=== PATIENT | male | born 1955 | race Caucasian/White ===

== ENCOUNTER 2016-08-23 20:14 | Inpatient (IN) ==
--- NOTE | 2016-08-23 20:18 | Emergency Department Note ---
Disposition Clinical Impression: Chest pain, Diabetes mellitus, Hyperlipidemia, History of pulmonary embolism, Obesity, Abnormal EKG, Elevated troponin, Hyperkalemia Disposition: Admitted As Inpatient Referrals: NO,PCP [Non-Partnered Physician] - Forms: ED Satisfaction Letter General Adult HPI - General Chief complaint: ED Chest Pain Stated complaint: chest pain Time Seen by Provider: 08/23/16 20:16 - History of Present Illness HPI Narrative: 61-year-old male reports emergency department complaining of midsternal chest pain which is somewhat sharp. He was mowing the lawn when the pain started. He had slight chest pain yesterday but it worsened today. He has no history of primary lung disease COPD asthma or cardiac disease but does have a history of DVT and PE. He is currently not anticoagulated. The patient has never had a cardiac stent. The pain does not radiate to the jaws or arms. There is no history of syncope leg swelling or pain or coughing up blood. No abdominal pain vomiting or diarrhea. There is no history of any trouble moving the arms or legs and dependently no acute back pain. The patient has no history of thoracic or abdominal aneurysm. There is been no coldness blueness numbness or weakness of the arms or legs. No history of fever cough runny nose or pain or sore throat. No trauma the chest. No rash. The patient was brought in by EMS. He had aspirin given by EMS providers. - Related Data Home Medications Medication Instructions Recorded Confirmed Allopurinol [Zyloprim] 300 mg PO DAILY 02/07/16 02/07/16 Naproxen [Naprosyn] 500 mg PO BID PRN 02/07/16 02/07/16 Previous Rx's Medication Instructions Recorded HYDROcodone/Acet 5/325 mg [[place] 1 tab PO Q4H PRN #12 tab 03/15/16 5-325 mg] Allergies Allergy/AdvReac Type Severity Reaction Status Date / Time No Known Allergies Allergy Verified 08/23/16 20:23 All systems ED: reviewed and negative except as stated. Past Medical History - Past Medical History Medical history: Reports: arthritis, DVT, diabetes, hyperlipidemia, pulmonary embolus, other Psychiatric history: Reports: no psych history - Social History Smoking Status: Former smoker Smokeless Tobacco Status: No Alcohol use: Reports: occasionally Drug use: Reports: none Physical Exam - General Limitations: no limitations General appearance: alert, in no apparent distress - Head Head exam: atraumatic, normocephalic, normal inspection - Eye Eye exam: Present: normal appearance, PERRL, EOMI. Absent: scleral icterus, conjunctival injection, miosis, mydriasis - ENT ENT exam: normal exam, normal oropharynx, mucous membranes moist, TM's normal bilaterally, normal external ear exam - Neck Neck exam: Present: normal inspection, full ROM, trachea midline. Absent: tenderness - Chest Chest inspection: Present: normal inspection, symmetric chest wall rise, tenderness. Absent: rash - Respiratory Respiratory exam: Present: normal lung sounds bilaterally. Absent: respiratory distress, wheezes, accessory muscle use, prolonged expiratory phase - Cardiovascular Cardiovascular exam: Present: regular rate, normal rhythm, normal heart sounds - Abdominal Exam Abdominal exam: Present: soft, Non-Tender, normal bowel sounds. Absent: tenderness, distention, guarding, rebound, rigidity, trauma, pulsatile mass - Extremities Exam Extremities exam: Present: full ROM, normal capillary refill, other (Chronic venous stasis changes lower extremities). Absent: tenderness, pedal edema, joint swelling, calf tenderness - Expanded Lower Extremity Exam Lower leg exam: Absent: Homans' sign Neurovascular/Tendon exam: Present: normal capillary refill. Absent: motor deficit, sensory deficit, tendon deficit, extremity cold to touch, pallor - Back Exam Back exam: Present: normal inspection, full ROM. Absent: tenderness, CVA tenderness (R), CVA tenderness (L), vertebral tenderness - Neurological Exam Neurological exam: Present: alert, oriented X3, CN II-XII intact. Absent: motor sensory deficit - Psychiatric Psychiatric exam: Present: normal affect, normal mood - Skin Skin exam: Present: warm, dry, intact, normal color. Absent: rash, cyanosis, diaphoresis, erythema, pallor, mottled Course Vital Signs Temperature 97.6 F 08/23/16 20:15 Pulse Rate 70 08/23/16 20:15 Respiratory Rate 18 08/23/16 20:15 Blood Pressure 162/97 08/23/16 20:15 O2 Sat by Pulse Oximetry 97 08/23/16 20:15 Temperature 97.6 F 08/23/16 20:15 Pulse Rate 70 08/23/16 20:15 Respiratory Rate 18 08/23/16 20:15 Blood Pressure 162/97 08/23/16 20:15 O2 Sat by Pulse Oximetry 97 08/23/16 20:15 Oxygen Delivery Oxygen Delivery Room Air Medical Decision Making - MDM Narrative Medical decision making narrative: The patient is a male over 50, morbidly obese, has a history of diabetes and hypercholesterolemia, his EKG is abnormal, he is expressing chest pain and has an elevated troponin. The patient was given aspirin and route. EMS had provided this for him. He was given pain relief measures in the ED. The patient has a history of PE and DVT but evidences a negative d-dimer. I do not necessarily suspect PE or DVT or dissection. His chest x-ray is negative. The patient's risk factors are significant for acute coronary syndrome and his testing is abnormal and I think it would be appropriate to admit the patient to the hospital for further evaluation.. The patient is currently stable. I discussed the case with the hospitalist who has accepted the patient to their care. - Lab Data Lab results reviewed: Yes I reviewed the patient's lab results. Result diagrams: 08/23/16 21:16 08/23/16 21:16 Lab Results 08/23/16 08/23/16 08/23/16 Range/Units 21:16 21:16 21:16 WBC (4.3-11.1) K/mcL RBC (4.19-5.50) M/mcL Hgb (12.9-16.9) g/dL Hct (37.5-50.1) % MCV (83.0-100.0) fL MCH (28.0-33.3) pg MCHC (31.6-35.5) g/dL RDW (11.5-14.5) % Plt Count (140-400) K/mcL MPV (9.4-12.4) fL Immature Gran % (0-4) % Seg Neutrophils % % Lymphocytes % % Monocytes % % Eosinophils % % Basophils % % Neutrophils # (1.6-8.9) K/mcL Lymphocytes # (0.6-4.6) K/mcL Monocytes # (0.0-1.3) K/mcL Eosinophils # (0.0-0.6) K/mcL Basophils # (0.0-0.2) K/mcL PT 11.6 (9.4-12.1) Seconds INR 1.1 APTT 31.0 (26.0-36.0) Seconds D-Dimer 457 (0-500) ng/mLFEU Sodium (136-145) mEq/L Potassium (3.5-4.5) mEq/L Chloride (98-109) mEq/L Carbon Dioxide (19-29) mEq/L BUN (8-26) mg/dL Creatinine (0.72-1.25) mg/dL Est GFR ( Amer) (> 60) Est GFR (Non-Af Amer) (> 60) BUN/Creatinine Ratio (6-26) Glucose (70-99) mg/dL Calculated Osmolality (280-300) Calcium (8.6-10.8) mg/dL Total Bilirubin 0.6 (0.2-1.2) mg/dL Direct Bilirubin 0.2 (0.0-0.5) mg/dL Indirect Bilirubin 0.4 (0.0-1.2) mg/dL AST 26 (5-34) Units/L ALT 27 (0-55) Units/L Alkaline Phosphatase 63 (38-126) Units/L Troponin I (0-0.03) ng/mL C-Reactive Protein 16 H (Less than 5) mg/L B-Natriuretic Peptide < 10 (0-100) pg/mL Serum Total Protein 7.8 (6.0-8.3) g/dL Albumin 3.9 (3.5-5.0) g/dL Globulin 3.9 H (2.4-3.5) g/dL Albumin/Globulin Ratio 1.0 L (1.1-2.2) Lipase 18 (8-78) Units/L 08/23/16 08/23/16 08/23/16 Range/Units 21:16 21:16 21:16 WBC 13.0 H (4.3-11.1) K/mcL RBC 5.44 (4.19-5.50) M/mcL Hgb 15.3 (12.9-16.9) g/dL Hct 46.4 (37.5-50.1) % MCV 85.3 (83.0-100.0) fL MCH 28.1 (28.0-33.3) pg MCHC 33.0 (31.6-35.5) g/dL RDW 15.4 H (11.5-14.5) % Plt Count 245 (140-400) K/mcL MPV 9.4 (9.4-12.4) fL Immature Gran % 0.8 (0-4) % Seg Neutrophils % 82.9 % Lymphocytes % 11.4 % Monocytes % 4.4 % Eosinophils % 0.2 % Basophils % 0.3 % Neutrophils # 10.7 H (1.6-8.9) K/mcL Lymphocytes # 1.5 (0.6-4.6) K/mcL Monocytes # 0.6 (0.0-1.3) K/mcL Eosinophils # 0.0 (0.0-0.6) K/mcL Basophils # 0.0 (0.0-0.2) K/mcL PT (9.4-12.1) Seconds INR APTT (26.0-36.0) Seconds D-Dimer (0-500) ng/mLFEU Sodium 139 (136-145) mEq/L Potassium 5.0 H (3.5-4.5) mEq/L Chloride 105 (98-109) mEq/L Carbon Dioxide 23 (19-29) mEq/L BUN 20 (8-26) mg/dL Creatinine 1.24 (0.72-1.25) mg/dL Est GFR ( Amer) > 60 (> 60) Est GFR (Non-Af Amer) 60 (> 60) BUN/Creatinine Ratio 16 (6-26) Glucose 145 H (70-99) mg/dL Calculated Osmolality 293 (280-300) Calcium 9.6 (8.6-10.8) mg/dL Total Bilirubin (0.2-1.2) mg/dL Direct Bilirubin (0.0-0.5) mg/dL Indirect Bilirubin (0.0-1.2) mg/dL AST (5-34) Units/L ALT (0-55) Units/L Alkaline Phosphatase (38-126) Units/L Troponin I 0.08 H* (0-0.03) ng/mL C-Reactive Protein (Less than 5) mg/L B-Natriuretic Peptide (0-100) pg/mL Serum Total Protein (6.0-8.3) g/dL Albumin (3.5-5.0) g/dL Globulin (2.4-3.5) g/dL Albumin/Globulin Ratio (1.1-2.2) Lipase (8-78) Units/L - Radiology Data Radiology results reviewed: Yes I reviewed the patient's radiology results.
[2016-08-23] MEDS ORDERED: Ondansetron 4 MG/2 ML VIAL IVP ONE (20:30)
[2016-08-23] MEDS ORDERED: *HR* HYDROmorphone (PF) 1 MG/ML SYRINGE IVP ONE (20:30)
[2016-08-23 21:31] LABS: INR 1.1; Prothrombin Time 11.6 Seconds (9.4-12.1)
[2016-08-23 21:38] LABS: BUN/Creatinine Ratio 16 (6-26); Blood Urea Nitrogen 20 mg/dL (8-26); Calcium 9.6 mg/dL (8.6-10.8); Carbon Dioxide 23 mEq/L (19-29); Chloride 105 mEq/L (98-109); Glucose 145 mg/dL (70-99); Osmolality,Calculated 293 (280-300); Sodium 139 mEq/L (136-145); eGFR For African Americans > 60 (> 60); eGFR For Non-African Americans 60 (> 60)
[2016-08-23 21:40] LABS: Albumin 3.9 g/dL (3.5-5.0); Bilirubin,Direct 0.2 mg/dL (0.0-0.5); Bilirubin,Indirect 0.4 mg/dL (0.0-1.2); Bilirubin,Total 0.6 mg/dL (0.2-1.2); Globulin 3.9 g/dL (2.4-3.5); Total Protein 7.8 g/dL (6.0-8.3)
[2016-08-23 21:41] LABS: Basophils % 0.3 %; Eosinophils % 0.2 %; Hematocrit 46.4 % (37.5-50.1); Hemoglobin 15.3 g/dL (12.9-16.9); Immature Granulocytes % 0.8 % (0-4); Lymphocytes # 1.5 K/mcL (0.6-4.6); Lymphocytes % 11.4 %; Mean Corpuscular Hemoglobin 28.1 pg (28.0-33.3); Mean Corpuscular Volume 85.3 fL (83.0-100.0); Mean Platelet Volume 9.4 fL (9.4-12.4); Monocytes # 0.6 K/mcL (0.0-1.3); Monocytes % 4.4 %; Neutrophils # 10.7 K/mcL (1.6-8.9); Platelet Count 245 K/mcL (140-400); Red Blood Count 5.44 M/mcL (4.19-5.50); Red Cell Distribution Width 15.4 % (11.5-14.5); Segmented Neutrophils % 82.9 %
[2016-08-23] MEDS ORDERED: Naloxone 0.4 MG/ML INJ IVP PRN (22:12)
--- NOTE | 2016-08-23 23:21 | Internal Med History&Physical ---
Date of Encounter: 08/23/16 Time of Encounter: 23:20 Assessment and Plan (1) Chest pain Current visit: Yes Status: Acute pt with no prior documented CAD but significant risk factors comes in with chest pain concerning for ACS for which a stress test will be reasonable, his EKG showed non specific ROBEL TW changes, troponin levels was 0.08 earlier but his chest pain had resolved, we will cycle troponin if it uptrends we will get cardiology involved due to concern for NSTEMI, otherwise we will do a stress test in AM, we will also check lipid profile and A1c, do telemonitoring, aspirin and lipitor Qualifiers: Chest pain type: precordial pain Qualified Code(s): R07.2 - Precordial pain (2) Hyperkalemia Current visit: Yes Status: Acute may be related to cellular shifts, we will follow BMP, no need for urgent intervention (3) JAYSHREE (obstructive sleep apnea) Current visit: Yes Status: Chronic had a sleep study and was supposed to get a CPAP device but has not gotten around to it yet, he is not open to being placed on one inpatient, we will defer to outpatient (4) Diabetes mellitus Current visit: Yes Status: Chronic Hx of type 2 DM not on insulin regimen, we will do basal bolus insulin and follow FS, Qualifiers: Diabetes mellitus type: type 2 Diabetes mellitus complication status: with neurologic complications Diabetes mellitus complication detail: with polyneuropathy Diabetes mellitus half-way 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 Sawant is a 61 year old male with a history of morbid obesity/HTN/DM/ Dyslipidemia was brought to the ER for chest pain. He was in his usual state of health until at around 5-6pm when he began having chest pain whilst mowing the lawn at home. It was retrosternally located, felt like "someone sitting on my chest", was increasingly getting worse to a peak of 9-10/10. It radiated to both arms. It was constant and associated with diaphoresis, lightheadedness and apprehension. No nausea or vomiting, or dyspnea was noted. This is his first such episode. He had a stress test >5 years ago that was unremarkable. Past Med Surg Social Fam HX - Past Medical History Source: patient Medical history: arthritis, DVT (BLE followed by a PE at the same time about 5 years ago and was on coumadin for 4 months and was discontinued), diabetes, hyperlipidemia, pulmonary embolus, other (kidney stones, right knee gout, morbid obesity, JAYSHREE but not obtained CPAP device yet, sciatica) Psychiatric history: no psych history - Past Surgical History Surgical History: other (for kidney stone removal) - Social History Smoking Status: Never smoker Packs per day: he has never smoked cigarettes but smokes 1 cigar/month, Smokeless Tobacco Status: No Alcohol use: occasionally Drug use: none Occupational status: disabled Current living situation: Home - Independent Activity Level: Independent ambulation - Family History Mother Living Status: Hx Family Cardiac Disorders: No Hx Family Respiratory Disorders: No Hx Family Cancer: Yes (kidney) Hx Family GI Disorders: No Hx Family Endocrine Disorder: No Hx Family Neuromuscular Disorders: No Hx Family Neurologic Disorders: No Hx Family HEENT Disorders: No Hx Family Autoimmune Disorders: No - Additional Family History Additional family history: father of possible PAD during surgery for that, mother had kidney cancer s/p resection, she eventually of Alzheimer's dementia Internal Medicine - H&P: Meds Allopurinol [Zyloprim] 300 mg PO DAILY 02/07/16 [History] Naproxen [Naprosyn] 500 mg PO BID PRN 02/07/16 [History] HYDROcodone/Acet 5/325 mg [[place] 5-325 mg] 1 tab PO Q4H PRN #12 tab 03/15/16 [Rx ] Allergies No Known Allergies Allergy (Verified 08/23/16 20:23) All Systems PM: A 10-system review of systems was performed and is negative for pertinent findings except as documented above in the HPI. - Constitutional Vitals: Temp Pulse Resp BP Pulse Ox 97.6 F 70 18 162/97 97 08/23/16 20:15 08/23/16 20:15 08/23/16 20:15 08/23/16 20:15 08/23/16 20:15 General General appearance: Adult male, lying in bed with no sign of distress, alert, in no apparent distress, obese looking - Head Head exam: atraumatic, normocephalic, normal inspection - Eye Eye exam: , PERRL, EOMI. Absent: scleral icterus, conjunctival injection, miosis, mydriasis - ENT ENT exam: normal exam, normal oropharynx, mucous membranes moist, TM's normal bilaterally, normal external ear exam - Neck Neck exam: thick looking, full ROM, trachea midline. Absent: tenderness - Respiratory Respiratory exam: Present: normal lung sounds bilaterally. Absent: respiratory distress, wheezes, accessory muscle use, prolonged expiratory phase - Cardiovascular Cardiovascular exam: Present: regular rate, normal rhythm, normal heart sounds - Abdominal Exam Abdominal exam: obese abdomen, soft, Non-Tender, normal bowel sounds. Absent: tenderness, distention, guarding, rebound, rigidity, trauma, pulsatile mass - Extremities Exam Extremities exam: full ROM, normal capillary refill, other (Chronic venous stasis changes lower extremities). Absent: tenderness, pedal edema, joint swelling, calf tenderness - Neurological Exam Neurological exam: alert, oriented X3, CN II-XII intact. Absent: motor or sensory deficit - Psychiatric Psychiatric exam: Present: normal affect, normal mood - Skin Skin exam: warm, dry, bilateral lower extremity stasis dermatitis lesion Internal Med - H&P Results - Labs CBC & Chem 7: 08/23/16 21:16 08/24/16 03:59 - EKG Data -: EKG Interpreted by Myself - Diagnostic Studies Chest x-ray Status: image reviewed by me
[2016-08-24] MEDS ORDERED: *HR* Dextrose 50 % in Water (Syg) 50 ML SYRINGE IVP PRN (00:48)
[2016-08-24] MEDS ORDERED: D5% in Water 1,000 ML IVC PRN (00:48)
[2016-08-24] MEDS ORDERED: Dextrose Gel 15 GM PO PRN ×2 (00:48)
[2016-08-24] MEDS: *HR* HYDROcodone/Acet 5/325 mg TABLET PO PRN ×2 (03:00→13:38)
[2016-08-24] MEDS ORDERED: *HR* Heparin 5,000 UNIT/ML VIAL IVP ONE (05:17)
[2016-08-24] MEDS ORDERED: *HR* Heparin 5,000 UNIT/ML VIAL IVP PRN ×2 (05:17)
--- NOTE | 2016-08-24 05:22 | Event Note ---
Date of Encounter: 08/24/16 Time of Encounter: 05:21 pt initially admitted for chest pain for r/o has uptrending troponins, there is concern for NSTEMI so we will start the ACS protocol and get cardiology involved , will also change his status to inpt admission.
[2016-08-24 05:29] LABS: BUN/Creatinine Ratio 17 (6-26); Blood Urea Nitrogen 19 mg/dL (8-26); Calcium 9.2 mg/dL (8.6-10.8); Carbon Dioxide 19 mEq/L (19-29); Chloride 106 mEq/L (98-109); Chol/HDL Ratio 6.3 (0-4.9); Cholesterol 213 mg/dL (< 200); Glucose 152 mg/dL (70-99); HDL Cholesterol 34 mg/dL (40-59); LDL Cholesterol,Calculated 154 mg/dL (0-99); Magnesium 2.1 mg/dL (1.6-2.6); Osmolality,Calculated 293 (280-300); Phosphorous 4.3 mg/dL (2.3-4.7); Potassium 4.3 mEq/L (3.5-4.5); Sodium 139 mEq/L (136-145); Triglycerides 127 mg/dL (< 150); eGFR For African Americans > 60 (> 60); eGFR For Non-African Americans > 60 (> 60)
[2016-08-24] MEDS ORDERED: Heparin 25,000 UNIT/500 ML D5W 25,000 UNIT/500 ML MLS IVC SCH (05:30)
[2016-08-24 05:31] LABS: Hemoglobin A1C 5.8 %
[2016-08-24] MEDS: Insulin LISPRO 300 UNITS/3 ML VIAL SQ SCH ×3 (06:21→19:13)
[2016-08-24] MEDS: Aspirin 81 MG TAB.CHEW PO SCH (08:27)
--- NOTE | 2016-08-24 08:47 | Cardiology Consult Note ---
Date of Encounter: 08/24/16 Time of Encounter: 08:38 Assessment and Plan (1) STEMI (ST elevation myocardial infarction) Current Visit: Yes Status: Acute significant risk factors for ACS HTN, HLD, DM, morbid obesity ST segment elevation in EKG done by EMS ER EKG with ST segment changes with elevation in troponins .08>1.14 continue tele, asa, lipitor plan for cath later this morning continue to follow troponin Qualifiers: Involved coronary artery: unspecified coronary artery Qualified Code(s): I21.3 - ST elevation (STEMI) myocardial infarction of unspecified site (2) Chest pain Current Visit: Yes Status: Acute significant risk factors for ACS HTN, HLD, DM, morbid obesity with elevation in troponins .08>1.14 EKG with non specific ROBEL TW changes continue tele, asa, lipitor, Qualifiers: Chest pain type: precordial pain Qualified Code(s): R07.2 - Precordial pain (3) Troponin level elevated Current Visit: Yes Status: Acute (4) Abnormal EKG Current Visit: Yes Status: Acute (5) History of pulmonary embolism Current Visit: Yes Status: Acute (6) Obesity Current Visit: Yes Status: Acute Qualifiers: Obesity type: due to excess calories Obesity severity: morbid Qualified Code(s): E66.01 - Morbid (severe) obesity due to excess calories (7) Diabetes mellitus Current Visit: Yes Status: Chronic Hx of type 2 DM not on insulin regimen, we will do basal bolus insulin and follow FS, Qualifiers: Diabetes mellitus type: type 2 Diabetes mellitus complication status: with neurologic complications Diabetes mellitus complication detail: with polyneuropathy Diabetes mellitus [facility] insulin use: without [facility] use Qualified Code(s): E11.42 - Type 2 diabetes mellitus with diabetic polyneuropathy (8) Hyperlipidemia Current Visit: Yes Status: Chronic will check his lipid profile, started on statin, was not on one at home prior to admission Qualifiers: Hyperlipidemia type: mixed hyperlipidemia Qualified Code(s): E78.2 - Mixed hyperlipidemia Discussion w patient/family: The assessment and plan as outlined above was discussed with the patient and/or family members who expressed understanding and agreement. All questions were answered. Thank you for involving us in the care of your patient. Please call with any questions. History of Present Illness Consult date: 08/24/16 Requesting physician: Monalisa Nuñez Consult reason: troponin elevation Chief complaint: chest pain History of present illness: Mr. Sawant is a 61 year old male OMHx morbid obesity, HTN, HLD, DM presented to the ER with chest pain. Pt states chest pain started suddenly while outside cutting his grass. He describes pain as a 9/10 heavy pressure-like pain that started suddenlyin substernal chest and radiated down both arms. He states he also became very lightheaded and dizzy with diaphoresis. pain was not improved with rest. Received asprin and dilaudid in ER, which minimally improved pain. He states he is still currently having some chest pain but is currently only about 3-4/10 after pain medication and starting heparin drip this morning. Pt states pain in both arms have improved but they are now feeling numb. Pt denies shortness of breath, but states he can only walk about 100feet without getting short of breath and needing to sit down due to severe deconditioning and chronic back pain. Pt states he has never had anything like this before and has never had any [place], stroke, has had PE previously. Past Med Surg Social Fam HX - Past Medical History Medical history: arthritis, DVT (BLE followed by a PE at the same time about 5 years ago and was on coumadin for 4 months and was discontinued), diabetes, hyperlipidemia, pulmonary embolus, other (kidney stones, right knee gout, morbid obesity, JAYSHREE but not obtained CPAP device yet, sciatica) Psychiatric history: no psych history - Past Surgical History Surgical History: other (for kidney stone removal) - Social History Smoking Status: Never smoker Packs per day: he has never smoked cigarettes but smokes 1 cigar/month, Smokeless Tobacco Status: No Alcohol use: occasionally Drug use: none - Family History Mother Living Status: Hx Family Cardiac Disorders: No Hx Family Respiratory Disorders: No Hx Family Cancer: Yes (kidney) Hx Family GI Disorders: No Hx Family Genitourinary Disorders: No Hx Family Endocrine Disorder: No Hx Family Musculoskeletal Disorders: No Hx Family Neuromuscular Disorders: No Hx Family Neurologic Disorders: No Hx Family HEENT Disorders: No Hx Family Autoimmune Disorders: No Hx Family Reproductive Disorders: No Hx Family Psychosocial Disorders: No Hx Family Medical Disorders: No Medications and Allergies Allopurinol [Zyloprim] 300 mg PO DAILY 02/07/16 [History] Lisinopril [Zestril] 5 mg PO DAILY 08/24/16 [History] Lovastatin 40 mg PO DAILY 08/24/16 [History] metFORMIN [Glucophage] 500 mg PO BIDWM 08/24/16 [History] Allergies No Known Allergies Allergy (Verified 08/23/16 20:23) All Systems Review: A 10-system review of systems was performed and is negative for pertinent findings except as documented above in the HPI. - Constitutional Constitutional: malaise, no chills, no fever(s) - EENT Eyes: no blurred vision, no loss of vision - Cardiovascular Cardiovascular: chest pain at rest, chest pain with exertion, diaphoresis, dyspnea on exertion, radiating jaw, neck or arm pain, lightheadedness, no claudication, no dyspnea at rest, no irregular heart rhythm, no leg edema, no syncope - Respiratory Respiratory: no cough, no dyspnea - Gastrointestinal Gastrointestinal: no abdominal pain, no nausea - Neurological Neurological: dizziness, numbness, no abnormal speech, no focal weakness, no loss of vision, no memory loss, no tingling Physical Examination Vital Signs, Last 4 Hours Temp Pulse Resp BP Pulse Ox 08/24/16 07:43 97.9 F 78 18 157/84 95 General: Conversant, No Apparent Distress HEENT: Atraumatic, Normocephaly, Mucus Membranes Moist Neck: No JVD Cardiac: Reg Rate and Rhythm, Normal S1 and S2, No Murmur Lungs: No Wheeze, Rales, Rhonchi, Other (diminished at bases) Neuro: Alert and responsive, No focal deficits noted Abdomen: Soft, Non-Tender Skin: Other (venous stasis b/l LE) Musculoskeletal: No Chest Wall Tenderness Extremities: Normal Pulses Results 08/23/16 21:16 08/24/16 03:59 - EKG Interpretation EKG results cardiology: personally reviewed, other (nonspecific ST segment changes) Consult Discharge Plan - Plan Referrals: Ab Garcia MD [Primary Care Provider] -
--- NOTE | 2016-08-24 10:32 | Pre-Sedation Evaluation ---
Pre-sedation evaluation - Pre-sedation checklist Date of procedure: 08/24/16 Procedure: [facility] Recent Vitals: Last Vital Signs Temp 97.9 F 08/24/16 07:43 Pulse 78 08/24/16 07:43 Resp 18 08/24/16 07:43 BP 157/84 08/24/16 07:43 Pulse Ox 95 08/24/16 08:20 H&P (including ROS) documented in medical record: Yes Previous reaction to sedatives/anesthetics: No Dietary Status: NPO after Midnight Airway Assessment: Patient can open mouth completely, TMJ function normal, Micrognathia (under-bite, receding chin) absent, Neck with adequate range of motion Dentition: No loose teeth or bridges Possible difficult airway: Yes If Yes;: Morbid obesity ASA Classification *see protocol: CLASS II-Mild systemic disease Plan of Care: Pt appropriate candidate for procedure/moderate/conscious sedation , Risks/benefits of procedure/sedation discussed w/ patient/family
[2016-08-24] MEDS ORDERED: 0.9 % Sodium Chloride 1,000 ML ONE ×2 (10:33→10:52)
[2016-08-24] MEDS ORDERED: Nitroglycerin 1,000 MCG/10 ML VIAL IV ONE (10:33)
[2016-08-24] MEDS ORDERED: Heparin 1,000 UNITS/500 mL NS 500 ML ONE (10:33)
[2016-08-24] MEDS ORDERED: Verapamil 5 MG/2 ML VIAL ONE (10:33)
[2016-08-24] MEDS ORDERED: *HR* Heparin 10,000 UNIT/10 ML VIAL ONE (10:33)
[2016-08-24] MEDS ORDERED: *HR* Midazolam HCl 5 MG/5 ML VIAL IVP ONE (10:47)
[2016-08-24] MEDS ORDERED: *HR* FentaNYL (PF) 250 MCG/5 ML VIAL ONE (10:47)
--- NOTE | 2016-08-24 10:59 | Internal Med Progress Note ---
Date of Encounter: 08/24/16 Time of Encounter: 09:00 - Assessment and plan (1) Chest pain Current Visit: Yes Status: Acute Assessment and plan: He was in his usual state of health until at around 5-6pm yesterday when he began having chest pain while mowing the lawn at home. It was retrosternally located, felt like "someone sitting on my chest", was increasingly getting worse to a peak of 9-10/10. It radiated to both arms. It was constant and associated with diaphoresis, lightheadedness and apprehension. EKG showed non-specific ROBEL and TVI. Second troponin became positive at 1.44 and he was started on ACS protocol heparin drip, statin and aspirin. Cardiology was consulted and plan for [facility] today. . Qualifiers: Chest pain type: precordial pain Qualified Code(s): R07.2 - Precordial pain (2) NSTEMI (non-ST elevated myocardial infarction) Current Visit: Yes Status: Acute Assessment and plan: plans as above (3) Diabetes mellitus Current Visit: Yes Status: Chronic Assessment and plan: diabetic diet. sliding scale insulin. Qualifiers: Diabetes mellitus type: type 2 Diabetes mellitus complication status: with neurologic complications Diabetes mellitus complication detail: with polyneuropathy Diabetes mellitus director long term care insulin use: without penitentiary use Qualified Code(s): E11.42 - Type 2 diabetes mellitus with diabetic polyneuropathy (4) JAYSHREE (obstructive sleep apnea) Current Visit: Yes Status: Chronic (5) Morbid obesity with BMI of 50.0-59.9, adult Current Visit: Yes Status: Chronic Assessment and plan: [id number] - Subjective Interval history: patient reports minimal chest pain. no shortness of breath. no headache - Constitutional Vitals: Temp Pulse Resp BP Pulse Ox 97.9 F 78 18 157/84 95 08/24/16 07:43 08/24/16 07:43 08/24/16 07:43 08/24/16 07:43 08/24/16 08:20 General appearance: Present: cooperative, A&O X 3, morbidly obese, pleasant, no acute distress, answers questions appropriately - Neck Neck exam general surgery: Present: supple, trachea midline. Absent: lymphadenopathy - Respiratory Respiratory exam: Present: CTAB - Cardiovascular Cardiovascular exam: Present: RRR - GI/Abdominal GI/Abdominal exam: Present: normal bowel sounds, soft. Absent: distended, tenderness - Extremities Exam Extremities exam: Absent: pedal edema - Back Exam Back exam: Absent: CVA tenderness (L), CVA tenderness (R) - Neurological Exam Neurological exam: Present: alert, oriented X3. Absent: facial droop, speech deficit - Skin Skin exam: Absent: rash Internal Medicine: Result - Labs CBC & Chem 7: 08/23/16 21:16 08/24/16 03:59 Labs: Cardiac Enzymes 08/24/16 Range/Units 09:45 Troponin I 6.19 H* (0-0.03) ng/mL - ABG Interpretation ABG results: PT/INR, D-dimer PT 11.6 Seconds (9.4-12.1) 08/23/16 21:16 D-Dimer 457 ng/mLFEU (0-500) 08/23/16 21:16 Consult Discharge Plan - Plan Referrals: Ab Garcia MD [Primary Care Provider] -
[2016-08-24] MEDS ORDERED: *HR* Ticagrelor 90 MG TABLET ONE (12:18)
[2016-08-24] MEDS ORDERED: Acetaminophen 325 MG TABLET PO PRN (12:28)
[2016-08-24] MEDS ORDERED: Nitroglycerin 0.4 MG TAB.SUBL SL PRN (12:28)
--- NOTE | 2016-08-24 12:52 | Invasive Diagnostic Lab Proc ---
Name: Jose Guadalupe Sawant Date of Study: 08/24/2016 Date: 1955 Ht: 68.1in Medical Record#: [id number] Age: 61 Wt: 374.79lb Gender: Male BSA: 2.67 Order #: [id number] BMI: 56.8 Physicians Procedure Physician: Padmaja Grace MD, [facility] Referring MD: Referring MD: Staff Name Position Time In Maynor Perez RN Monitor 11:04 AM Ivis Dial RT Scrub 11:04 AM Agustina Velázquez RN Educational Program Director 11:04 AM Indications Indication Non-Stemi Procedures Performed Procedure L HRT ARTERY/VENTRICLE ANGIO PRQ CARD ELIJAH STENT W/ANGIO 1 VSL Pre-Procedure Checklist Informed consent is complete signed and on chart. H\\T\\P is on chart. ID band is on and ID verified with patient. Patient NPO for procedure The procedure was described for the patient and questions were answered. Blood Pressure: 157/84 ECG is on chart. Rhythm: NSR Plan of Care Patient will tolerate the procedure without complications. Adequate level of comfort will be maintained. Hemodynamics will remain stable Patient will recover from procedure without complications. Respiratory function will be maintained. Cardiac rhythm will remain stable. Patient temperature will be maintained. Patient and/or family have verbalized understanding of the procedure. Patient Education Chief Complaint/Reason for Test: Cardiac Cath Developmental Category: Adult (18-64 years) Developmentally Appropriate for Age: Yes Learning Barriers: None Education Needs: Procedure Education Method: Verbal Information Taught: Cardiac Cath Educational Evaluation: Able to repeat information Intravenous Access Time IV Size Location DC'd Fluid/Drip Rate Units RN DC'd Rt Antecubital Yes 0.9NaCl 25 ml/hr Maynor Perez RN 11:13 AM Started with 20g 1 1/4" Lt Antecubital 0.9NaCl 25 ml/hr Maynor Perez RN Allergies No Known Allergies Vital Signs Time BP (mmHg) HR (bpm) O2 Sat. RR (bpm) LOC 157 / 84 78 95 % 16 5 = Fully awake and oriented or at pre-proc level 11:06 AM / % 5 = Fully awake and oriented or at pre-proc level 11:20 AM / % 5 = Fully awake and oriented or at pre-proc level 11:29 AM / % 4 = Oriented but drowsy 11:29 AM / % 4 = Oriented but drowsy 11:44 AM / % 4 = Oriented but drowsy 11:59 AM / % 4 = Oriented but drowsy 11:22 AM 176 / 121 79 98 % 15 11:25 AM 189 / 110 83 97 % 12 11:31 AM 170 / 105 83 96 % 15 11:35 AM 163 / 103 76 96 % 19 11:40 AM 164 / 109 81 95 % 11:45 AM 169 / 105 80 96 % 11:50 AM 174 / 106 80 96 % 11:55 AM 177 / 109 81 96 % 15 12:01 PM 182 / 108 81 95 % 12:06 PM 171 / 107 78 94 % 12:10 PM 167 / 108 80 95 % 14 12:16 PM 163 / 93 86 93 % 16 12:20 PM 162 / 104 85 93 % 17 Procedural Medications Time Medication Dose Units Method Given By 11:24 AM Versed 2 mg Intravenous Agustina Velázquez RN 11:24 AM Fentanyl 50 mcg Intravenous Agustina Velázquez RN 11:27 AM Oxygen 2 L/min nasal cannula Agustina Velázquez RN 11:28 AM Lidocaine 2% 1 ml Subcutaneous Padmaja Grace MD, FACC 11:31 AM Heparin 4000 units Nitroglycerin 200 mcg Verapamil 2.5 mg Intraarterial Padmaja Grace MD, FACC 11:58 AM Lidocaine 2% 11 ml Subcutaneous Padmaja Grace MD, FACC 12:13 PM Nitroglycerin 200 mcg Intracoronary Padmaja Grace MD, FACC 12:15 PM Nitroglycerin 200 mcg Intracoronary Padmaja Grace MD, FACC 12:05 PM Benadryl 25 mg Intravenous Agustina Velázquez RN 12:23 PM Brilinta 180 mg Orally Agustina Velázquez RN 12:32 PM Reopro Bolus: 21.2 ml Intravenous Agustina Velázquez RN ASA Classification: CLASS II- Mild systemic disease (i.e. well-controlled diabetes, hypertension, asthma, cigarette smoking) Jimena Score Preprocedure Postprocedure Activity 2- Moves 4 extremities sustained head lift Activity 2- Moves 4 extremities sustained head lift Circulation 2- SBP +/= 20 points of pre-anesthetic level Circulation 2- SBP +/= 20 points of pre-anesthetic level Consciousness 2- Awake and alert oriented x 3 Consciousness 2- Awake and alert oriented x 3 O2 Saturation 2- Able to maintain O2 satruation of 92% on room air O2 Saturation 2- Able to maintain O2 satruation of 92% on room air Respiratory 2- Able to deep breathe and cough well Respiratory 2- Able to deep breathe and cough well Total Score 10 Total Score 10 Contrast Agent: Isovue Diagnostic Contrast: 246 ml Total Contrast: 246 ml Fluoro Dose: 3191 mGy Activated Clotting Time Time Seconds to Clot 12:08 PM 331 12:25 PM 168 Procedure Log Time Note Enter By 10:42 AM CathStat 11:00 AM Pt arrived to labor delivery rn 2 at 11:00 tsites 11:00 AM Physician arrived 11:00 tsites 11:04 AM Maynor Perez RN Position: Monitor Time in: : tsites 11:04 AM Ivis Dial RT Position: Scrub Time in: : tsites 11:04 AM Agustina Velázquez RN Position: Educational Program Director Time in: 11:04 tsites 11:04 AM Patient charges- Angio tray pack, Navilyst 3mm J, Pulse Oximetry and ACIST tubing and transducer tsites 11:04 AM IV Supplies used: J loop Angio Cath. tsites 11:04 AM Hair removed from procedure site in procedure lab using clippers. Right wrist and right groin prepped with Chloraprep by Maynor Perez RN, safety strap applied then patient was draped. Skin intact. tsites 11:05 AM ASA Class CLASS II- Mild systemic disease (i.e. well-controlled diabetes, hypertension, asthma, cigarette smoking) csmith 11:05 AM Kyle and jovon completed csmith 11:05 AM Sign in performed according to hospital policy. csmith 11:05 AM Procedure start 11:05 csmith 11:05 AM IV to R AC not flushing, dc'd, pressure held until hemostasis achieved csmith 11:06 AM Time: 11:06 Patient comfortable and pain free: Yes csmith 11:06 AM Time: 11:06LOC: 5 = Fully awake and oriented or at pre-proc level csmith 11:20 AM Vitals capture started with the following parameters, Patient=Adult, Interval=5 min, Initial Xmldbdqf=785 mmHg, Deflation Rate=5 mmHg, Cuff placed on Left Arm 11:20 AM Case Start 11:20 AM Time: 11:20 Patient comfortable and pain free: Yes tsites 11:20 AM Time: 11:20LOC: 5 = Fully awake and oriented or at pre-proc level tsites 11:22 AM HR=79 bpm, RASV=009/121 mmhg, SpO2=98.0 %, Resp=15 B/min, Comment=sr 11:24 AM Time: 11:24 Versed 2 mg Intravenous Given by Agustina Velázquez RN [facility] 11:24 AM Time: 11: Fentanyl 50 mcg Intravenous Given by Agustina Velázquez RN [facility] 11: AM HR=83 bpm, MNWB=361/110 mmhg, SpO2=97.0 %, Resp=12 B/min, Comment=sr 11: AM Time out performed according to hospital policy [facility] : AM Time: : Oxygen on at 2 L/min per nasal cannula by Agustina Velázquez RN [facility] : AM Pressure channel 1 zeroed. : AM Time: : 1 ml Lidocaine 2% to right radial Subcutaneous [facility] Time: : Patient comfortable and pain free: Yes [email or web address] 11: AM Time: :LOC: 4 = Oriented but drowsy kkallner 11: AM Clinical Presentation: Non-STEMI kkallner 11:30 AM Access obtained by percutaneous puncture. 6Fr 10cm Terumo Glidesheath sheath placed in right Radial artery. [id number] kkner 11:31 AM HR=83 bpm, ZUEB=226/105 mmhg, SpO2=96.0 %, Resp=15 B/min, Comment=sr : AM Time: : Patient given 4,000 units Heparin, 200 mcg Nitroglycerin, and 2.5 mg Verapamil Intraarterial by Padmaja Grace MD, FACC kkner 11:32 AM 5Fr FR5 catheter inserted over the wire [id number] kkallner 11:32 AM wire removed kkner 11:33 AM RCA angiography performed in multiple views. [email or web address] 11:34 AM Recorded Pressure: Ao, HR=82, Condition=Condition 1 (Aorta) Ao 68/55/62 11:34 AM Pressure channel 1 zeroed. 11:35 AM wire reinserted kkallner 11:35 AM Catheter removed kkallner 11:35 AM HR=76 bpm, DWOO=626/103 mmhg, SpO2=96.0 %, Resp=19 B/min 11:35 AM 5Fr FL3.5 catheter inserted over the wire [id number] kk 11:36 AM wire removed kk 11:37 AM wire reinserted kk 11:38 AM Catheter removed kk 11:39 AM 6Fr EBU 3.5 Medtronic guide catheter was used to cannulate the PCI vessel successfully. reused? No kkner 11:39 AM wire removed kk 11:40 AM HR=81 bpm, BSTI=392/109 mmhg, SpO2=95.0 %, Comment=sr 11:42 AM Catheter removed kk 11:43 AM 6Fr JL4 [employer] guide catheter was used to cannulate the PCI vessel successfully. reused? No kk 11:44 AM Time: 11:29 Patient comfortable and pain free: Yes 11:44 AM Time: 11:29LOC: 4 = Oriented but drowsy kk 11:44 AM wire removed kk 11:45 AM HR=80 bpm, NWUM=728/105 mmhg, SpO2=96.0 % 11:47 AM wire reinserted kkner 11:48 AM Guide catheter removed intact. kkner 11:49 AM 6Fr EBU 3.0 Medtronic guide catheter was used to cannulate the PCI vessel successfully. reused? No kk 11:49 AM wire removed kk 11:50 AM HR=80 bpm, BLAA=538/106 mmhg, SpO2=96.0 % 11:53 AM Guide catheter removed intact. kk 11:54 AM 6Fr CLS 3.0 Runway guide catheter was used to cannulate the PCI vessel successfully. reused? No kk 11:54 AM wire removed kk 11:55 AM HR=81 bpm, QNRD=864/109 mmhg, SpO2=96.0 %, Resp=15 B/min 11:57 AM Guide catheter removed intact. kk 11:59 AM Time: 11:44 Patient comfortable and pain free: Yes kk 11:59 AM Time: 11:44LOC: 4 = Oriented but drowsy [facility] 12:00 PM Time: 11:58 11 ml Lidocaine 2% to right groin Subcutaneous Given by Padmaja Grace MD, [facility] 12:00 PM Access obtained by percutaneous puncture. 6Fr 10cm Terumo [place] sheath placed in right Femoral artery. [id number] 12:00 PM 6Fr EBU 3.5 Medtronic guide catheter was used to cannulate the PCI vessel successfully. reused? Yes kkner 12:01 PM HR=81 bpm, TINX=275/108 mmhg, SpO2=95.0 % 12:01 PM wire removed kkner 12:02 PM Recorded Pressure: Ao, HR=78, Condition=Condition 1 (Aorta) Ao 143/92/115 12:02 PM LCA angiography performed in multiple views. kk 12:03 PM Inflation device was opened. kkner 12:03 PM .014 Prowater 180cm guide wire across target lesion- successful. reused? No kkner 12:04 PM 2.5 mm x 15 mm Emerge Monorail balloon across target lesion- successful. reused? No kk 12:05 PM Time: 12:05 Benadryl 25 mg Intravenous Given by Agustina Velázquez RN 12:06 PM HR=78 bpm, PCGW=772/107 mmhg, SpO2=94.0 %, Comment=sr 12:06 PM Balloon inflated @ 10 natalio for 20 seconds kkallner 12:07 PM Balloon inflated @ 10 natalio for 20 seconds kkallner 12:07 PM Balloon inflated @ 10 natalio for 20 seconds kkner 12:08 PM At 12:08 the ACT was 331 seconds. kk 12:08 PM Balloon inflated @ 10 natalio for 20 seconds kkallner 12:09 PM Balloon inflated @ 12 natalio for 30 seconds kk 12:10 PM Balloon catheter removed intact. kk 12:10 PM HR=80 bpm, OOTN=446/108 mmhg, SpO2=95.0 %, Resp=14 B/min 12:11 PM 3.0mm x 38mm Synergy drug-eluting stent across target lesion- successful Lot #[id number] 12:13 PM Stent deployed @ 12 natalio for 30 seconds kk 12:13 PM Stent delivery system removed intact. kk 12:13 PM Time: 12:13 Nitroglycerin 200 mcg Intracoronary Given by Padmaja Grace MD, [facility] 12:14 PM Time: 11:59 Patient comfortable and pain free: Yes 12:14 PM Time: 11:59LOC: 4 = Oriented but drowsy kk 12:15 PM Guide wire removed intact. 12:15 PM Time: 12:15 Nitroglycerin 200 mcg Intracoronary Given by Padmaja Grace MD, [facility] kk 12:16 PM HR=86 bpm, MUQX=423/93 mmhg, SpO2=93.0 %, Resp=16 B/min 12:16 PM wire reinserted kk 12:16 PM Guide catheter removed intact. kk 12:16 PM 5Fr Pigtail catheter inserted over the wire [facility] 12:16 PM wire removed 12:17 PM Catheter selectively placed in left ventricle kk 12:17 PM Pressure channel 1 zeroed. 12:17 PM Recorded Pressure: LV, HR=90, Condition=Condition 1 (Left Ventricle) LV 103/11/15 12:17 PM Bolus angiogram of left Ventricle complete: 8 ml/sec for a total of 24 mls 12:18 PM Recorded Pressure: LV, Ao, HR=86, Condition=Condition 1 (Left Ventricle) LV 110/23/28, (Aorta) Ao 111/89/100 12:19 PM catheter and wire removed 12:19 PM Bolus angiogram of right Femoral complete: 4 ml/sec for a total of 7 mls 12:20 PM Coronary Dominance: right [email or web address] 12:20 PM Lesion found in Mid Circumflex. Pre Stenosis: 100 Pre LALITO Flow: 0 12:20 PM HR=85 bpm, GTKB=007/104 mmhg, SpO2=93.0 %, Resp=17 B/min 12:23 PM Time: 12:23 Brilinta 180 mg Orally Given by Agustina Velázquez RN 12:25 PM At 12:25 the ACT was 168 seconds. kkall 12:25 PM [facility] 12[facility]26 PM Sign out completed: Radiation Dose 3191.33 mGy Fluoro Time: 21.7 Isovue 370 - 200ml contrast 249 ml given by Padmaja Grace MD, [facility]. Complications: NoneCardiac Rehab Consult needed: YesConfirmed administered medications: Yes ner 12:26 PM Isovue 370 - 200ml,2 Bottle(s) used. kk 12: PM Sheath left in place to be pulled on floor/holding area kk 12:27 PM Post ECG NSR kkall 12:27 PM Post Blood Pressure 163/103 kkall 12:27 PM 12:27 Post Pulses Bilateral DP \\T\\ PT 1+ kkallner 12:27 PM 12:27 Post Pulses Rt Radial 1+ kkner 12:28 PM Information taught Cardiac Cath, Vasc Band, and ADJUNCT INSTRUCTOR/Stent kk 12:28 PM Education needs Procedure, Plan of Care, and Responsibilities of Patient in Care kk 12:28 PM 15 ml air in Vasc Band. kk 12:28 PM Learning barriers :None kk 12:28 PM Education Methods Verbal kk 12:28 PM Education evaluation Able to repeat information kk 12:28 PM Site status No bleeding/hematoma - Rt Groin as reported by Marii Foster RT (R) at 12:28 kkallner 12:29 PM Site status No bleeding/hematoma - Rt Wrist as reported by Marii Foster RT (R) at 12:28 kkallner 12:29 PM Plavix, Effient or Brilinta given Yes kk 12:29 PM Delay to floor No kk 12:29 PM Patient out of room: 12:29 kk 12:29 PM Family placed in consult room. kkner 12:29 PM Complications: None kk:29 PM Fluoro Time: 21.7 kkner 12:29 PM Isovue 370 - 200ml contrast 246 ml given by Padmaja Grace MD, FACC. kk 12:29 PM Radiation Dose 3191.33 mGy kkall 12:29 PM Lesion found in Proximal LAD. Pre Stenosis: 30 Pre LALITO Flow: kk 12:30 PM Lesion found in Proximal RCA. Pre Stenosis: 30 Pre LALITO Flow: kkall 12:30 PM Lesion found in Mid RCA. Pre Stenosis: 30 Pre LALITO Flow: kkallner 12:30 PM Lesion found in Distal RCA. Pre Stenosis: 30 Pre LALITO Flow: kkallner 12:30 PM Left Main Coronary Artery with 0% stenosis kkallner 12:30 PM Proximal Left Anterior Descending Coronary Artery with 30% stenosis. If graft is supplying this territory, 0 % stenosis. kkallner 12:30 PM Mid/Distal Left Anterior Descending Coronary Artery and diagonal branches with 0% stenosis. If graft is supplying this area, 0 % stenosis kkallner 12:30 PM Circumflex, Obtuse Marginal, Left Posterior Descending, and Left Posterolateral Coronary Arteries with 100 % stenosis. If graft is supplying this area, 0 % stenosis kkallner 12:30 PM Right Coronary, Right Posterior Descending Arteries with Right Posterolateral and Acute Marginal branches with 30 % stenosis. If graft is supplying this area, 0 % stenosis kkallner 12:30 PM Ramus with 0% stenosis. If graft is supplying this area, 0 % stenosis kkallner 12:32 PM Time: 12:32 Reopro Bolus: 21.2 ml Intravenous Given by Agustina Velázquez RN Art pump kkallner 12:41 PM Report given to Denia WILKERSON Pt taken to ICU [facility]. 12:[facility] Complications Complication None None Hemodynamics Pressures Site Systolic/A Wave Diastolic/V Wave Mean AO 68 55 62 AO 143 92 115 LV 103 11 15 LV 110 23 28 AO 111 89 100 Post Procedure Information Blood Pressure: 163/103 mmHg Rhythm: NSR Post procedural instructions were given Site Checks Time Location Status Staff Sheath In? Note 12:28 PM Rt Groin No bleeding/hematoma Marii Foster RT (R) Yes 12:28 PM Rt Wrist No bleeding/hematoma Marii Foster RT (R) Pulses Time Site Pre-Procedure Post-Procedure Note Bilateral DP \\T\\ PT 1+ Bilateral radial 2+ 12:27:00 PM Bilateral DP \\T\\ PT 1+ 12:27:00 PM Rt Radial 1+ Updated by Ivis Dial RT (R) on 08/24/2016 12:46:12 PM electronically signed on 08/24/2016 12:47:13 PM with status of Final
--- NOTE | 2016-08-24 15:34 | Electrocardiograph Report ---
[address] [place], [place] [address] Test Date: 2016-08-23 Pat Name: Jose Guadalupe Sawant Department: 105 Room: 02 Gender: Sign Erector: APURVA : 1955 Requested By: Onel Bryant Order Number: [id number] Reading MD: Leonel Grace Measurements Intervals [place] Rate: 72 P: 68 CT: 166 QRS: -34 QRSD: 98 T: 78 QT: 378 QTc: 403 Interpretive Statements SINUS RHYTHM MARKED LEFT AXIS DEVIATION PRECORDIAL ST DEPRESSION INFERIOR ST ELEVATION, POSSIBLE INJURY Electronically Signed On 08-24-2016 15:33:01 EDT by Leonel Grace
--- NOTE | 2016-08-24 15:51 | Electrocardiograph Report ---
[place] [address] Test Date: 2016-08-24 Pat Name: Jose Guadalupe Sawant Department: 109 Room: [facility] Gender: M Hall Tender: [facility] : 1955 Requested By: Padmaja Grace Order Number: [id number] Reading MD: Leonel Grace Measurements Intervals [place] Rate: 75 P: 66 DC: 167 QRS: -57 QRSD: 90 T: 40 QT: 386 QTc: 414 Interpretive Statements SINUS RHYTHM PATTERN CONSISTENT WITH PULMONARY DISEASE INFERIOR MYOCARDIAL INFARCTION, OF INDETERMINATE AGE Electronically Signed On 08-24-2016 15:50:17 EDT by Leonel Grace
--- NOTE | 2016-08-24 16:37 | Invasive Diagnostic Lab ---
Name: Jose Guadalupe Sawant Date of Study: 08/24/2016 Date: 1955 Ht: 173.0 cm /68.1 in Medical Record#: [id number] Age: 61 Wt: 170. kg / 374.79 lb Account/Order#: [id number] Gender: Male BSA: 2.67 Order #: [id number] Fluoro Dose: 3191 mGy BMI: 56.8 Procedure Physician: Pad[facility]ja Grace MD, [facility] Referring MD: Referring MD: Procedures Performed: LEFT HEART CATH PCI of Acute [place] Indications: STEMI Impressions: Single vessel coronary artery disease. Successful PCI of mid Cx. The left ventricle is normal and has normal contractility EF 55% Recommendations: DAPT for one year minimum uninterrupted. Optimal medical therapy of patient's disease. Aggressive risk factor modification. History/Risk Factors: history of dvt sleep apnea pe Diabetes Dyslipidemia Procedure Access obtained in the right Femoral artery by percutaneous puncture Patient had successful PTCA/Drug-Eluting Stent placement in the mid Circ. Complications: None, None Contrast: Isovue 246ml Hemodynamics: Pressures Site Systolic/ A Wave Diastolic/ V Wave End Diastolic/ Mean HR AO 68 55 62 82 AO 143 92 115 78 LV 103 11 15 90 LV 110 23 28 85 AO 111 89 100 88 LV Ventriculography Ejection Method: LV Gram Ejection Fraction: 55% Wall Motion: GIRON Anterobasal Normal Anterolateral Normal Apical: Normal Inferoapical Normal Inferobasal Mild Hypokinesis Coronary Dominance: right Lesion Findings/Interventions * Left Main Coronary Artery The LMCA is angiographically free of disease. * Left Anterior Descending There is a 30% stenosis in the Proximal LAD. * Circumflex There is a 38 mm long, 100% stenosis in the Mid Circumflex. The lesion has a LALITO flow of 0 and has thrombus present. An intervention was performed on the Mid Circumflex with a final stenosis of 0%. There were no lesion complications. The final LALITO flow was 2. * Right Coronary Artery There is a 30% stenosis in the Proximal RCA. There is a 30% stenosis in the Mid RCA. There is a 30% stenosis in the Distal RCA. Interventional Device(s) Vessel Segment Type Name Diameter (mm) Length (mm) Mid Circumflex Balloon Emerge Monorail 2.5 15 Mid Circumflex Drug Eluting Stent Synergy 3 38 Updated by Padmaja Grace MD, FACC on 08/24/2016 4:28:38 PM Padmaja Grace MD, FACC electronically signed on 08/24/2016 4:30:07 PM with status of Final
[2016-08-24] MEDS ORDERED: Insulin LISPRO 300 UNITS/3 ML VIAL SQ SCH (21:00)
[2016-08-25 04:28] LABS: Basophils % 0.3 %; Eosinophils # 0.1 K/mcL (0.0-0.6); Eosinophils % 0.6 %; Hematocrit 43.6 % (37.5-50.1); Hemoglobin 14.4 g/dL (12.9-16.9); Immature Granulocytes % 0.6 % (0-4); Lymphocytes # 1.7 K/mcL (0.6-4.6); Lymphocytes % 13.9 %; Mean Corpuscular Hemoglobin 28.3 pg (28.0-33.3); Mean Corpuscular Volume 85.8 fL (83.0-100.0); Mean Platelet Volume 9.6 fL (9.4-12.4); Neutrophils # 9.6 K/mcL (1.6-8.9); Platelet Count 242 K/mcL (140-400); Red Blood Count 5.08 M/mcL (4.19-5.50); Red Cell Distribution Width 15.9 % (11.5-14.5); Segmented Neutrophils % 76.6 %
[2016-08-25 04:43] LABS: BUN/Creatinine Ratio 15 (6-26); Blood Urea Nitrogen 15 mg/dL (8-26); Calcium 9.2 mg/dL (8.6-10.8); Carbon Dioxide 22 mEq/L (19-29); Chloride 107 mEq/L (98-109); Glucose 128 mg/dL (70-99); Osmolality,Calculated 290 (280-300); Potassium 4.1 mEq/L (3.5-4.5); Sodium 139 mEq/L (136-145); eGFR For African Americans > 60 (> 60); eGFR For Non-African Americans > 60 (> 60)
[2016-08-25] MEDS: Aspirin 81 MG TAB.CHEW PO SCH (08:24)
[2016-08-25] MEDS: Insulin LISPRO 300 UNITS/3 ML VIAL SQ SCH ×3 (08:24→16:40)
--- NOTE | 2016-08-25 10:10 | Cardiology Progress Note ---
Date of Encounter: 08/25/16 Time of Encounter: 09:15 Assessment and Plan (1) STEMI (ST elevation myocardial infarction) Current Visit: Yes Status: Acute STEMI as per squad ECG. Peak troponin 6.19. [facility] 08/24/16: successful PTCA/ELIJAH to occluded mLCx; otherwise mild, non- obstructive CAD. EF 55% per LV gram. Echo pending. Cardiac rehab consulted. Has been chest pain free since PCI. Vital signs stable. No issues with cath site. Post PCI instructions discussed including importance of uninterrupted DAPT (asa + plavix) for at least 1 year. Continue DAPT, statin, ACEi, and betablocker. Recommend prn NTG at discharge. Will continue to follow, recommend additional 24 hours of inpatient monitoring. Qualifiers: Involved coronary artery: unspecified coronary artery Qualified Code(s): I21.3 - ST elevation (STEMI) myocardial infarction of unspecified site (2) Essential hypertension Current Visit: Yes Status: Chronic Control not ideal this morning, will increase ACEi to 10 mg daily. Continue to monitor closely, kidney function stable s/p [facility]. (3) Hyperlipidemia Current Visit: Yes Status: Chronic Agree with statin therapy. Risk factor modification. Qualifiers: Hyperlipidemia type: mixed hyperlipidemia Qualified Code(s): E78.2 - Mixed hyperlipidemia Discussion w patient/family: The assessment and plan as outlined above was discussed with the patient and/or family members who expressed understanding and agreement. All questions were answered. Thank you for involving us in the care of your patient. Please call with any questions. The patient was discussed and reviewed with Dr. Leonel Grace who agrees with plan as stated above. Subjective Principal diagnosis: AMI Interval history: Seen and examined. Denies recurrent chest pain or discomfort upon exam--no issues with right groin cath site. Reports fatigue and "weak" today. Vital signs stable. Objective Vital Signs, Last 4 Hours Temp Pulse Resp BP Pulse Ox 08/25/16 09:00 71 16 153/82 94 08/25/16 08:00 88 16 150/87 95 08/25/16 07:26 98.5 F 08/25/16 07:00 83 16 129/65 94 General: Conversant, Other (morbidly obese) HEENT: Atraumatic, Normocephaly Cardiac: Reg Rate and Rhythm, Normal S1 and S2 Lungs: Normal Breath Sounds Neuro: Alert and responsive Abdomen: Soft Skin: No rashes noted on visualized skin Musculoskeletal: No Chest Wall Tenderness Extremities: Other (BLE edema/redness +1-2) Other: Right groin: dressing removed, no oozing/hematoma/bleeding noted at site. +2 DP/ PT pulses. Results 08/25/16 04:06 08/25/16 04:06 Lab Results 08/24/16 08/25/16 08/25/16 09:45 04:06 04:06 WBC 12.6 H Hgb 14.4 Hct 43.6 Plt Count 242 Sodium 139 Potassium 4.1 Chloride 107 Carbon Dioxide 22 BUN 15 Creatinine 0.98 Glucose 128 H Calcium 9.2 Magnesium 2.0 Troponin I 6.19 H* Active Medications Acetaminophen (Tylenol) 650 mg PO Q6HR PRN PRN Reason: Mild Pain Stop: 02/23/17 12:29 Acetaminophen/Hydrocodone Bitart ([place] 5-325 Mg) 1 tab PO Q4H PRN PRN Reason: Pain Stop: 02/22/17 22:14 Last Admin: 08/24/16 13:38 Dose: 1 tab Allopurinol (Zyloprim) 300 mg PO DAILY [facility] Stop: 02/23/17 09:01 Last Admin: 08/25/16 08:24 Dose: 300 mg Aspirin (Aspirin) 81 mg PO DAILY [facility] Stop: 02/23/17 09:01 Last Admin: 08/25/16 08:24 Dose: 81 mg Atorvastatin Calcium (Lipitor) 80 mg PO HS [facility] Stop: 02/23/17 21:01 Last Admin: 08/24/16 20:35 Dose: 80 mg Clopidogrel Bisulfate (Plavix) 75 mg PO DAILY [facility] Stop: 02/24/17 09:01 Last Admin: 08/25/16 08:24 Dose: 75 mg Dextrose/Water (Dextrose 50% (Syg)) 25 ml IVP AD PRN PRN Reason: Hypoglycemia Stop: 02/23/17 00:49 Glucagon (Glucagen) 1 mg IM ONCE PRN PRN Reason: Hypoglycemia Stop: 02/23/17 00:49 Glucose (Gluctose) 15 gm PO ONCE PRN PRN Reason: Hypoglycemia Stop: 02/23/17 00:49 Glucose (Gluctose) 30 gm PO ONCE PRN PRN Reason: Hypoglycemia Stop: 02/23/17 00:49 Dextrose (Dextrose 5%) 1,000 mls @ 100 mls/hr IVC .Q10H PRN PRN Reason: HYPOGLYCEMIA Stop: 02/23/17 00:49 Insulin Human Lispro (Humalog) 0 units SQ HS [facility] PRN Reason: Protocol Stop: 02/23/17 21:01 Last Admin: 08/24/16 20:37 Dose: Not Given Insulin Human Lispro (Humalog) 0 units SQ TIDAC [facility] PRN Reason: Protocol Stop: 02/24/17 07:31 Last Admin: 08/25/16 08:24 Dose: Not Given Lisinopril (Zestril) 5 mg PO DAILY [facility] PRN Reason: Protocol Stop: 02/23/17 12:31 Last Admin: 08/25/16 08:24 Dose: 5 mg Metoprolol Tartrate (Lopressor) 25 mg PO BID [facility] Stop: 02/23/17 21:01 Last Admin: 08/25/16 08:24 Dose: 25 mg Naloxone HCl (Narcan) 0.4 mg IVP Q2MIN PRN PRN Reason: Opioid Reversal Stop: 02/22/17 22:13 Nitroglycerin (Nitroglycerin) 0.4 mg SL Q5MIN PRN PRN Reason: Chest Pain Stop: 02/23/17 12:29 - Imaging and Cardiology Echo: pending Cardiac cath: report reviewed Other Results: 12 hour tele: avg HR=68 SR. No significant event noted. - EKG Interpretation EKG results cardiology: personally reviewed Consult Discharge Plan - Plan Referrals: Ab aGrcia MD [Primary Care Provider] -
--- NOTE | 2016-08-25 12:02 | ECHO - Doppler Report ---
Echocardiogram Name: Jose Guadalupe Sawant Date of Study: 08/25/2016 Date: 1955 Ht: 68.0 in Medical Record#: [id number] Age: 61 Wt: 374.0 lb Gender: Male BSA: 2.67 Order #: [id number] Location: [facility] Room #: 02 Reading Physician: Chintan Salinas DO, FACC, JENNY Log Washer: Zahraa Sigala RVT, RD Ordering Physician: Jannette Cottrell MD Primary Physician: Ab Garcia MD Indications: Myocardial infarction Impressions: LVEF 55%. Normal LV chamber size. Mild concentric left ventricular hypertrophy. Overall LV function appears normal, but not all segments were well visualized. Mild left ventricular diastolic dysfunction. Right ventricular size not well determined, but function appears normal. No evidence of pulmonary hypertension identified. RVSP not well obtained. Unable to estimate RVSP due to lack of TR jet. No obvious significant valvular dysfunction. Recommend future studies be performed with Definity for better evaluation of segmental wall motion. Findings: Study Quality * Technically sub-optimal due to body habitus. ECG Findings * Normal sinus rhythm. Left Ventricle * LVEF 55%. * Normal LV chamber size. Mild concentric left ventricular hypertrophy. Overall LV function appears normal, but not all segments were well visualized. * Mild left ventricular diastolic dysfunction. Right Ventricle * Right ventricular size not well determined, but function appears normal. Left Atrium * Mildly dilated left atrium. Right Atrium * Normal right atrial size. Interatrial Septum * Interatrial septum not well evaluated. Aortic Valve * Aortic valve not well visualized. * No aortic regurgitation. * No aortic stenosis. Mitral Valve * Normal mitral valve structure and function. * No mitral regurgitation. * No mitral stenosis. Tricuspid Valve * Tricuspid valve not well visualized. * Trace tricuspid regurgitation. * No evidence of pulmonary hypertension identified. RVSP not well obtained. Pulmonic Valve * Pulmonic valve not well visualized. * No pulmonic regurgitation. Aorta * Normally sized aortic root. Pericardium * The pericardium appears normal. IVC * The IVC is not well evaluated. Pulmonary Artery * Pulmonary artery not well visualized. History Diabetes Hypercholesteremia Measurements: BP: 129/ 65 2D Normal Values RVIDd: 3.30 cm <2.7 cm IVSd: 1.20 cm 0.6 - 1.0 cm LVIDd: 5.10 cm 3.7 - 5.6 cm LVPWd: 1.20 cm 0.6 - 1.1 cm LVIDs: 3.30 cm 1.5 - 3.6 cm AO: 2.70 cm < 4.0 cm LA: 3.70 cm 2.0 - 4.0cm %FS: 35.30 cm >25 % LA volume: 33 Mitral Valve Dec Time:275.00 msec Peak E:.91 m/sec Peak A:1.08 m/sec E/A Ratio:0.8 Peak E' Lat Cruz:6.34 cm/s Peak E' Med Cruz:7.66 cm/s E/E' Lat Ratio:14.4 E/E' Med Ratio:11.9 Tricuspid Valve TV Regurg Peak Grad: 23.00mmHg TV Regurg Peak Cruz: 2.41m/sec Updated by Chintan Salinas DO, RADHA, YAMILETH ALVARADO on 08/25/2016 11:55:51 AM electronically signed on 08/25/2016 11:56:35 AM with status of Final
[2016-08-25] MEDS ORDERED: Naloxone 0.4 MG/ML INJ IVP PRN (16:06)
[2016-08-25] MEDS ORDERED: *HR* HYDROcodone/Acet 5/325 mg TABLET PO PRN (16:06)
[2016-08-25] MEDS ORDERED: Nitroglycerin 0.4 MG TAB.SUBL SL PRN (16:06)
[2016-08-25] MEDS ORDERED: *HR* Dextrose 50 % in Water (Syg) 50 ML SYRINGE IVP PRN (16:06)
[2016-08-25] MEDS ORDERED: Acetaminophen 325 MG TABLET PO PRN (16:06)
[2016-08-25] MEDS ORDERED: Dextrose Gel 15 GM PO PRN ×2 (16:06)
[2016-08-25] MEDS ORDERED: D5% in Water 1,000 ML IVC PRN (16:06)
--- NOTE | 2016-08-25 16:28 | Internal Med Progress Note ---
Date of Encounter: 08/25/16 Time of Encounter: 16:00 - Assessment and plan (1) Chest pain Current Visit: Yes Status: Acute Assessment and plan: He was in his usual state of health until at around 5-6pm yesterday when he began having chest pain while mowing the lawn at home. It was retrosternally located, felt like "someone sitting on my chest", was increasingly getting worse to a peak of 9-10/10. It radiated to both arms. It was constant and associated with diaphoresis, lightheadedness and apprehension. Qualifiers: Chest pain type: precordial pain Qualified Code(s): R07.2 - Precordial pain (2) STEMI (ST elevation myocardial infarction) Current Visit: Yes Status: Acute Assessment and plan: squad EKG showed STEMI. troponin peaked at 6.19. received heparin drip followed by [facility] 08/24 showing occluded mid-LCX with successful PTCA/ELIJAH. echocardiogram 08/25 showed LVEF 55%. Appreciate cardiology input. Continue ASA, plavix, statin, BB and ACEi. 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 Qualifiers: Involved coronary artery: left circumflex coronary artery Qualified Code(s) : I21.21 - ST elevation (STEMI) myocardial infarction involving left circumflex coronary artery (3) Diabetes mellitus Current Visit: Yes Status: Chronic Assessment and plan: adequate accuchecks. diabetic diet. sliding scale insulin. Qualifiers: Diabetes mellitus type: type 2 Diabetes mellitus complication status: with neurologic complications Diabetes mellitus complication detail: with polyneuropathy Diabetes mellitus care home insulin use: without care home use Qualified Code(s): E11.42 - Type 2 diabetes mellitus with diabetic polyneuropathy (4) JAYSHREE (obstructive sleep apnea) Current Visit: Yes Status: Chronic (5) Morbid obesity with BMI of 50.0-59.9, adult Current Visit: Yes Status: Chronic Assessment and plan: [id number] - Subjective Interval history: Patient has no complaints. no shortness of breath. no headache - Constitutional Vitals: Temp Pulse Resp BP Pulse Ox 98.5 F 73 16 120/74 97 08/25/16 07:26 08/25/16 15:00 08/25/16 15:00 08/25/16 15:00 08/25/16 15:00 General appearance: Present: cooperative, A&O X 3, morbidly obese, pleasant, no acute distress, answers questions appropriately - Neck Neck exam general surgery: Present: supple, trachea midline. Absent: lymphadenopathy - Respiratory Respiratory exam: Present: CTAB - Cardiovascular Cardiovascular exam: Present: RRR - GI/Abdominal GI/Abdominal exam: Present: normal bowel sounds, soft. Absent: distended, tenderness - Extremities Exam Extremities exam: Present: pedal edema (trace ankle edema. chronic venous stasis skin changes.) - Back Exam Back exam: Absent: CVA tenderness (L), CVA tenderness (R) - Neurological Exam Neurological exam: Present: alert, oriented X3, no focal deficits, strengths equal and symetr throughout. Absent: facial droop, speech deficit - Skin Skin exam: Absent: rash Internal Medicine: Result - Labs CBC & Chem 7: 08/25/16 04:06 08/25/16 04:06 Labs: Short CBC 08/25/16 Range/Units 04:06 WBC 12.6 H (4.3-11.1) K/mcL Hgb 14.4 (12.9-16.9) g/dL Hct 43.6 (37.5-50.1) % Plt Count 242 (140-400) K/mcL Neutrophils # 9.6 H (1.6-8.9) K/mcL BMP 08/25/16 04:06 Sodium 139 Potassium 4.1 Chloride 107 Carbon Dioxide 22 BUN 15 Creatinine 0.98 Glucose 128 H Calcium 9.2 - ABG Interpretation ABG results: PT/INR, D-dimer PT 11.6 Seconds (9.4-12.1) 08/23/16 21:16 D-Dimer 457 ng/mLFEU (0-500) 08/23/16 21:16 Consult Discharge Plan - Plan Referrals: Ab Garcia MD [Primary Care Provider] -
[2016-08-25] MEDS ORDERED: Insulin LISPRO 300 UNITS/3 ML VIAL SQ SCH (21:00)
[2016-08-26 03:24] LABS: Basophils % 0.3 %; Eosinophils # 0.1 K/mcL (0.0-0.6); Eosinophils % 0.7 %; Hematocrit 40.5 % (37.5-50.1); Hemoglobin 13.2 g/dL (12.9-16.9); Immature Granulocytes % 0.8 % (0-4); Lymphocytes # 2.6 K/mcL (0.6-4.6); Lymphocytes % 21.7 %; Mean Corpuscular HGB Conc 32.6 g/dL (31.6-35.5); Mean Corpuscular Hemoglobin 28.1 pg (28.0-33.3); Mean Corpuscular Volume 86.2 fL (83.0-100.0); Mean Platelet Volume 9.7 fL (9.4-12.4); Monocytes # 1.2 K/mcL (0.0-1.3); Monocytes % 9.9 %; Neutrophils # 8.1 K/mcL (1.6-8.9); Platelet Count 234 K/mcL (140-400); Red Cell Distribution Width 15.9 % (11.5-14.5); Segmented Neutrophils % 66.6 %
[2016-08-26 03:35] LABS: BUN/Creatinine Ratio 17 (6-26); Blood Urea Nitrogen 19 mg/dL (8-26); Carbon Dioxide 21 mEq/L (19-29); Chloride 105 mEq/L (98-109); Glucose 104 mg/dL (70-99); Magnesium 1.7 mg/dL (1.6-2.6); Osmolality,Calculated 287 (280-300); Potassium 3.9 mEq/L (3.5-4.5); Sodium 137 mEq/L (136-145); eGFR For African Americans > 60 (> 60); eGFR For Non-African Americans > 60 (> 60)
[2016-08-26] MEDS: Insulin LISPRO 300 UNITS/3 ML VIAL SQ SCH ×2 (08:20→13:30)
[2016-08-26] MEDS ORDERED: Aspirin 81 MG TAB.CHEW PO SCH (09:00)
--- NOTE | 2016-08-26 09:24 | Discharge Summary ---
Date of Encounter: 08/26/16 Time of Encounter: 09:09 - Discharge Diagnosis (1) Chest pain Priority: Primary Status: Acute Qualifiers: Chest pain type: precordial pain Qualified Code(s): R07.2 - Precordial pain (2) STEMI (ST elevation myocardial infarction) Priority: Primary Status: Acute Qualifiers: Involved coronary artery: left circumflex coronary artery Qualified Code(s) : I21.21 - ST elevation (STEMI) myocardial infarction involving left circumflex coronary artery (3) Diabetes mellitus Priority: Secondary Status: Chronic Qualifiers: Diabetes mellitus type: type 2 Diabetes mellitus complication status: with neurologic complications Diabetes mellitus complication detail: with polyneuropathy Diabetes mellitus mcfp insulin use: without parts counterman use Qualified Code(s): E11.42 - Type 2 diabetes mellitus with diabetic polyneuropathy (4) JAYSHREE (obstructive sleep apnea) Priority: Secondary Status: Chronic (5) Morbid obesity with BMI of 50.0-59.9, adult Priority: Secondary Status: Chronic - Discharge Medications Prescriptions: Nitroglycerin 0.4 mg SL Q5MIN PRN #10 tab.subl PRN Reason: Chest Pain Aspirin 81 mg PO DAILY #30 tab.chew Atorvastatin [Lipitor] 80 mg PO HS #60 tablet Clopidogrel [Plavix] 75 mg PO DAILY #30 tablet Lisinopril [Zestril] 10 mg PO DAILY #60 tablet Metoprolol [Lopressor] 25 mg PO BID #60 tablet Home Medications: Allopurinol [Zyloprim] 300 mg PO DAILY 02/07/16 [History] metFORMIN [Glucophage] 500 mg PO BIDWM 08/24/16 [History] Aspirin 81 mg PO DAILY #30 tab.chew 08/26/16 [Rx] Atorvastatin [Lipitor] 80 mg PO HS #60 tablet 08/26/16 [Rx] Clopidogrel [Plavix] 75 mg PO DAILY #30 tablet 08/26/16 [Rx] Lisinopril [Zestril] 10 mg PO DAILY #60 tablet 08/26/16 [Rx] Metoprolol [Lopressor] 25 mg PO BID #60 tablet 08/26/16 [Rx] Nitroglycerin 0.4 mg SL Q5MIN PRN #10 tab.subl 08/26/16 [Rx] Allergies/Adverse Reactions: Allergies No Known Allergies Allergy (Verified 08/23/16 20:23) Procedures/tests Complete & Pending: Procedures Performed prior 72 hours Category Date Time Status CL Cardiac Catheterization [CL] Routine 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 08/24/16 09:23 Completed ECG 12 lead ECG [ECG] Routine Y 08/24/16 13:21 Completed ECG 12 lead ECG [ECG] Stat Y 08/24/16 12:28 Completed EV echocardiogram Routine Y 08/25/16 07:00 Completed Date of admission: 08/24/16 05:25 Primary care physician: Ab Garcia MD Consults: 08/24/16 09:23 Consult to Cardiac Rehabilitation-Phase1 [CONS] Routine Comment: Reason for Consult: STEMI Call Completed: No - Patient Status Disposition: Home, Self-Care Condition: Good Functional capacity at discharge: independent ambulation Overall status at discharge: patient is progressing back to baseline - Discharge Instructions Instructions: Metoprolol (By mouth), Lisinopril (By mouth), Aspirin (By mouth) , Atorvastatin (By mouth), Clopidogrel (By mouth), Myocardial Infarction (DC), Left Heart Catheterization (DC), Chronic Hypertension (DC) Follow Up With: [facility] [Provider Group] (Please call on Sunday morning to get a hospital f/u in 1-2 weeks, for s/p left heart cath) Ab Garcia MD [Primary Care Provider] - (f/u in 1 week) Additional Instructions: Please check your blood sugars before meals and at bedtime. write down numbers and bring record to primary care doctor appointment. FOLLOW UP IN THE CARDIOLOGY CLINIC. Follow up with your primary care physician in 1 week for DM, and weight loss program. - Diet and Activity Activity: other (Provide Acute LA instructions.) Diet: diabetic diet, low fat, low cholesterol Interval History: no chest pain. no shortness of breath. Hospital course: Mr. Sawant is a 61 year old male with past medical history of diabetes mellitus, obstructive Apnea more with obesity who presented with a chief complaint sudden onset of left-sided chest pain. Patient was admitted with nondistended with troponin 0.08. He was started on acute coronary syndrome protocol including heparin drip, aspirin and beta aj. After reviewing squadd EKG it was noted the patient had STEMI. Patient had a heart catheterization showing occluded mid left circumflex with successful PTCA and drug-eluting stent. Echocardiogram showed LVEF 55%. Patient remained hemodynamically stable and asymptomatic. PLAN: Follow-up in the cardiology clinic. follow up with your primary care doctor for diabetes and weight loss program. - Time Spent with Patient Total time spent providing and/or coordinating discharge services: - Constitutional Vitals: Temp Pulse Resp BP Pulse Ox 97.6 F 72 16 135/81 93 08/26/16 06:47 08/26/16 06:47 08/26/16 06:47 08/26/16 06:47 08/26/16 08:00 General appearance: Present: cooperative, A&O X 3, morbidly obese, pleasant, no acute distress, answers questions appropriately - Eye Eye exam: Present: PERRL, sclera anicteric - Neck Neck exam general surgery: Present: supple, trachea midline. Absent: lymphadenopathy - Respiratory Respiratory exam: Present: CTAB - Cardiovascular Cardiovascular exam: Present: RRR - GI/Abdominal GI/Abdominal exam: Present: normal bowel sounds, soft. Absent: distended, tenderness - Extremities Exam Extremities exam: Absent: pedal edema - Back Exam Back exam: Absent: CVA tenderness (L), CVA tenderness (R) - Neurological Exam Neurological exam: Present: alert, oriented X3, no focal deficits, strengths equal and symetr throughout. Absent: facial droop, speech deficit - Skin Skin exam: Absent: rash
[2016-08-26 11:09] VITALS: BP 138/75
--- NOTE | 2016-08-26 11:12 | Cardiology Progress Note ---
Date of Encounter: 08/26/16 Time of Encounter: 10:40 Assessment and Plan (1) STEMI (ST elevation myocardial infarction) Current Visit: Yes Status: Acute STEMI as per squad ECG. Peak troponin 6.19. [facility] 08/24/16: successful PTCA/ELIJAH to occluded mLCx; otherwise mild, non- obstructive CAD. EF 55% per LV gram. TTE shows preserved LVEF. Has been chest pain free since PCI. Vital signs stable. No issues with cath site. Post PCI instructions discussed including importance of uninterrupted DAPT (asa + plavix) for at least 1 year. Continue DAPT, statin, ACEi, and betablocker. Recommend prn NTG at discharge. Cardiology will sign-off, please call with questions. Will coordinate outpatient appt. Qualifiers: Involved coronary artery: left circumflex coronary artery Qualified Code(s) : I21.21 - ST elevation (STEMI) myocardial infarction involving left circumflex coronary artery (2) Essential hypertension Current Visit: Yes Status: Chronic Control not ideal this morning, will increase ACEi to 10 mg daily. Continue to monitor closely, kidney function stable s/p [facility]. (3) Hyperlipidemia Current Visit: Yes Status: Chronic Agree with statin therapy. Risk factor modification. Qualifiers: Hyperlipidemia type: mixed hyperlipidemia Qualified Code(s): E78.2 - Mixed hyperlipidemia Discussion w patient/family: The assessment and plan as outlined above was discussed with the patient and/or family members who expressed understanding and agreement. All questions were answered. Thank you for involving us in the care of your patient. Please call with any questions. The patient was discussed and reviewed with Dr. Padmaja Grace. Cardiology will sign-off, please call with questions. Subjective Principal diagnosis: AMI Interval history: Seen and examined. Reports feels much better today. Denies issues with right groin cath site. Has been up and ambulating in hallway without symptoms. Objective Vital Signs, Last 4 Hours Pulse Ox 08/26/16 08:00 93 General: Conversant, No Apparent Distress, Other (obese) HEENT: Atraumatic, Normocephaly, Mucus Membranes Moist Cardiac: Reg Rate and Rhythm, Normal S1 and S2 Lungs: Normal Breath Sounds Neuro: Alert and responsive Abdomen: Soft Skin: No rashes noted on visualized skin Musculoskeletal: No Chest Wall Tenderness Extremities: No Edema, Normal Pulses Results 08/26/16 02:43 08/26/16 02:43 Lab Results 08/26/16 08/26/16 02:43 02:43 WBC 12.1 H Hgb 13.2 Hct 40.5 Plt Count 234 Sodium 137 Potassium 3.9 Chloride 105 Carbon Dioxide 21 BUN 19 Creatinine 1.10 Glucose 104 H Calcium 9.0 Magnesium 1.7 Active Medications Acetaminophen (Tylenol) 650 mg PO Q6HR PRN PRN Reason: Mild Pain Stop: 02/23/17 12:29 Acetaminophen/Hydrocodone Bitart ([place] 5-325 Mg) 1 tab PO Q4H PRN PRN Reason: Pain Stop: 02/22/17 22:14 Allopurinol (Zyloprim) 300 mg PO DAILY [facility] Stop: 02/23/17 09:01 Last Admin: 08/26/16 08:20 Dose: 300 mg Aspirin (Aspirin) 81 mg PO DAILY [facility] Stop: 02/23/17 09:01 Last Admin: 08/26/16 08:20 Dose: 81 mg Atorvastatin Calcium (Lipitor) 80 mg PO HS [facility] Stop: 02/23/17 21:01 Last Admin: 08/25/16 20:35 Dose: 80 mg Clopidogrel Bisulfate (Plavix) 75 mg PO DAILY [facility] Stop: 02/24/17 09:01 Last Admin: 08/26/16 08:20 Dose: 75 mg Dextrose/Water (Dextrose 50% (Syg)) 25 ml IVP AD PRN PRN Reason: Hypoglycemia Stop: 02/23/17 00:49 Glucagon (Glucagen) 1 mg IM ONCE PRN PRN Reason: Hypoglycemia Stop: 02/23/17 00:49 Glucose (Gluctose) 15 gm PO ONCE PRN PRN Reason: Hypoglycemia Stop: 02/23/17 00:49 Glucose (Gluctose) 30 gm PO ONCE PRN PRN Reason: Hypoglycemia Stop: 02/23/17 00:49 Dextrose (Dextrose 5%) 1,000 mls @ 100 mls/hr IVC .Q10H PRN PRN Reason: HYPOGLYCEMIA Stop: 02/23/17 00:49 Insulin Human Lispro (Humalog) 0 units SQ HS [facility] PRN Reason: Protocol Stop: 02/23/17 21:01 Last Admin: 08/25/16 20:34 Dose: Not Given Insulin Human Lispro (Humalog) 0 units SQ TIDAC [facility] PRN Reason: Protocol Stop: 02/24/17 07:31 Last Admin: 08/26/16 08:20 Dose: Not Given Lisinopril (Zestril) 10 mg PO DAILY [facility] PRN Reason: Protocol Stop: 02/25/17 09:01 Last Admin: 08/26/16 08:20 Dose: 10 mg Metoprolol Tartrate (Lopressor) 25 mg PO BID [facility] Stop: 02/23/17 21:01 Last Admin: 08/26/16 08:20 Dose: 25 mg Naloxone HCl (Narcan) 0.4 mg IVP Q2MIN PRN PRN Reason: Opioid Reversal Stop: 02/22/17 22:13 Nitroglycerin (Nitroglycerin) 0.4 mg SL Q5MIN PRN PRN Reason: Chest Pain Stop: 02/23/17 12:29 - Imaging and Cardiology Echo: report reviewed Cardiac cath: report reviewed - EKG Interpretation EKG results cardiology: personally reviewed Consult Discharge Plan - Plan Instructions: Metoprolol (By mouth), Lisinopril (By mouth), Aspirin (By mouth) , Atorvastatin (By mouth), Clopidogrel (By mouth), Myocardial Infarction (DC), Left Heart Catheterization (DC), Chronic Hypertension (DC) Additional Instructions: Please check your blood sugars before meals and at bedtime. write down numbers and bring record to primary care doctor appointment. FOLLOW UP IN THE CARDIOLOGY CLINIC. Follow up with your primary care physician in 1 week for DM, and weight loss program. Referrals: [facility] [Provider Group] (Please call on Sunday morning to get a hospital f/u in 1-2 weeks, for s/p left heart cath) Ab Garcia MD [Primary Care Provider] - (f/u in 1 week) Prescriptions: Aspirin 81 mg PO DAILY #30 tab.chew Atorvastatin [Lipitor] 80 mg PO HS #60 tablet Clopidogrel [Plavix] 75 mg PO DAILY #30 tablet Lisinopril [Zestril] 10 mg PO DAILY #60 tablet Metoprolol [Lopressor] 25 mg PO BID #60 tablet
== END 2016-08-26 14:11 | disposition home or self-care (01) | DRG 247 ==
LOC: EMEROO 20:14 → 3BNU 20:14 → SUATTDRO 08-24 05:25 → ICNU 08-24 13:03 → 2ANU 08-25 17:13
PROVIDERS: ADMIT Registered Nurse; ATTEND Internal Medicine

== ENCOUNTER 2016-09-03 01:12 | Observation (INO) ==
--- NOTE | 2016-09-03 01:36 | Internal Med History&Physical ---
Date of Encounter: 09/03/16 Time of Encounter: 01:35 Assessment and Plan (1) Elevated troponin I level Current visit: Yes Status: Acute Patient recently had STEMI and stent placement on 08/23/16. It is uncertain who the patient has down trending troponin from recent cardiac event versus new coronary event. Pt received aspirin Lovenox in the emergency department. Cardiac monitoring and trend troponins. Cardiology consultation for further advice. (2) UTI (urinary tract infection) Current visit: Yes Status: Acute Empirically treat with ceftriaxone. Urine cultures pending Qualifiers: Urinary tract infection type: site unspecified Hematuria presence: without hematuria Qualified Code(s): N39.0 - Urinary tract infection, site not specified (3) Weakness generalized Current visit: Yes Status: Acute Could be due to UTI versus influenza versus MT. Treat UTI with ceftriaxone. check for influenza. (4) Diabetes mellitus Current visit: Yes Status: Chronic Start sliding scale insulin Qualifiers: Diabetes mellitus type: type 2 Diabetes mellitus complication status: with neurologic complications Diabetes mellitus complication detail: with polyneuropathy Diabetes mellitus detention insulin use: without terminal superintendent use Qualified Code(s): E11.42 - Type 2 diabetes mellitus with diabetic polyneuropathy (5) Morbid obesity with BMI of 50.0-59.9, adult Current visit: Yes Status: Chronic Supportive care (6) JAYSHREE (obstructive sleep apnea) Current visit: Yes Status: Chronic Pt not using CPAP at home Internal Medicine - H&P: HPI Chief complaint: Elevated troponin Admitted From: Emergency Dept Plans for Post Hospital Care: Home History of present illness: Mr. Sawant is a 61 year old male With h/o diabetes mellitus, obstructive Apnea, morbid obesity, Recent admission for chest pain and had STEMI s/p heart catheterization showing occluded mid left circumflex with successful PTCA and drug-eluting stent placement on 08/23/16. He presented to the ER with generalized aching, weakness and fatigue with mild shortness of breath since yesterday afternoon. He feels like he may have flu but denies fever. He denies chest pain, abdominal pain, nausea, vomiting, dysuria, hematuria, diarrhea or constipation. He was evaluated in the emergency department at [facility] who was noted to have troponin of 0.77. He was given aspirin and enoxaparin in the ER. ER provider discussed with the supervisor concrete stone finishing Dr. Dubon, who recommended admission to the hospitalist service with cardiology consultation in the morning. Past Med Surg Social Fam HX - Past Medical History Medical history: arthritis, DVT, diabetes, hyperlipidemia, pulmonary embolus, other Psychiatric history: no psych history - Past Surgical History Surgical History: other (for kidney stone removal) - Social History Smoking Status: Never smoker Smokeless Tobacco Status: No Alcohol use: occasionally Drug use: none - Family History Mother Living Status: Hx Family Cardiac Disorders: No Hx Family Respiratory Disorders: No Hx Family Cancer: Yes (kidney) Hx Family GI Disorders: No Hx Family Endocrine Disorder: No Hx Family Neuromuscular Disorders: No Hx Family Neurologic Disorders: No Hx Family HEENT Disorders: No Hx Family Autoimmune Disorders: No Father Hx Family Cardiac Disorders: Yes (Aneusym) Internal Medicine - H&P: Meds Allopurinol [Zyloprim] 300 mg PO DAILY 02/07/16 [History] metFORMIN [Glucophage] 500 mg PO BIDWM 08/24/16 [History] Aspirin 81 mg PO DAILY #30 tab.chew 08/26/16 [Rx] Clopidogrel [Plavix] 75 mg PO DAILY #30 tablet 08/26/16 [Rx] Metoprolol [Lopressor] 25 mg PO BID #60 tablet 08/26/16 [Rx] Nitroglycerin 0.4 mg SL Q5MIN PRN #10 tab.subl 08/26/16 [Rx] Atorvastatin [Lipitor] 80 mg PO HS 09/03/16 [History] Lisinopril [Zestril] 5 mg PO DAILY 09/03/16 [History] Allergies No Known Allergies Allergy (Verified 08/23/16 20:23) All Systems PM: A 10-system review of systems was performed and is negative for pertinent findings except as documented above in the HPI. - Constitutional Exam: General: Not in acute distress at the time of my evaluation. Morbidly obese HEENT: Oral mucosa is moist. No conjunctival palor or scleral icterus Neck: No obvious neck swellings Lungs: Clear to auscultation Cardiac: Regular rate and rhythm. No significant murmurs Abdomen: Obese, non tender. Large umbilical hernia present - non tender. Bowel sounds present Genitourinary: No el catheter Neurological: Alert and oriented. No gross localizing deficits Psych: Not aggressive or agitated Extremities: B/L leg edema Skin: No generalized rash Internal Med - H&P Results - Labs Labs: UA is positive for leucocyte esterase. Troponin: 0.77 - EKG Data -: EKG Interpreted by Myself EKG shows normal: sinus rhythm - EKG Data EKG comments: Q waves in lead 2, lead 3, aVF 09/03/16 07:43 - Impressions CXR done Lashawn Carrasco reported clear lungs
[2016-09-03] MEDS ORDERED: Naloxone 0.4 MG/ML INJ IVP PRN (01:37)
[2016-09-03] MEDS ORDERED: *HR* Dextrose 50 % in Water (Syg) 50 ML SYRINGE IVP PRN (01:39)
[2016-09-03] MEDS ORDERED: Nitroglycerin 0.4 MG TAB.SUBL SL PRN (01:39)
[2016-09-03] MEDS ORDERED: Dextrose Gel 15 GM PO PRN ×2 (01:39)
[2016-09-03] MEDS ORDERED: D5% in Water 1,000 ML IVC PRN (01:39)
[2016-09-03] MEDS: Insulin LISPRO 300 UNITS/3 ML VIAL SQ SCH ×3 (07:15→16:16)
[2016-09-03 08:33] LABS: Magnesium 1.7 mg/dL (1.6-2.6)
--- NOTE | 2016-09-03 08:48 | Cardiology Consult Note ---
Date of Encounter: 09/03/16 Time of Encounter: 08:45 Assessment and Plan Discussion w patient/family: The assessment and plan as outlined above was discussed with the patient and/or family members who expressed understanding and agreement. All questions were answered. Thank you for involving us in the care of your patient. Please call with any questions. I do not think this is a recurrence of CAD/ blockage -pt does not have any cp, sob, a/w work up for sepsis this could be a form of post CA , Gonzalo's syndrome also sug: check ekg in am cont present meds no indications for cath/ stress test at present d/w pt History of Present Illness History of present illness: Mr. Sawant is a 61 year old male Mr. Sawant is a 61 year old male With h/o diabetes mellitus, obstructive Apnea, morbid obesity, Recent admission for chest pain and had STEMI s/p heart catheterization showing occluded mid left circumflex with successful PTCA and drug-eluting stent placement on 08/23/16. He presented to the ER with generalized aching, weakness and fatigue with mild shortness of breath since yesterday afternoon. He feels like he may have flu but denies fever. He denies chest pain, abdominal pain, nausea, vomiting, dysuria, hematuria, diarrhea or constipation. He was evaluated in the emergency department at [facility] who was noted to have troponin of 0.77. He was given aspirin and enoxaparin in the ER Pt at present denies any cp, sob, gives symptoms of sepsis or flu (has not had flu shot) EKG: no acute changes Pt does have sleep apnea that is not being treated at present Past Med Surg Social Fam HX - Past Medical History Medical history: arthritis, DVT, diabetes, hyperlipidemia, pulmonary embolus, other Psychiatric history: no psych history - Past Surgical History Surgical History: other (for kidney stone removal) - Social History Smoking Status: Never smoker Smokeless Tobacco Status: No Alcohol use: occasionally Drug use: none - Family History Father Hx Family Cardiac Disorders: Yes (Aneusym) Mother Living Status: Hx Family Cardiac Disorders: No Hx Family Respiratory Disorders: No Hx Family Cancer: Yes (kidney) Hx Family GI Disorders: No Hx Family Endocrine Disorder: No Hx Family Neuromuscular Disorders: No Hx Family Neurologic Disorders: No Hx Family HEENT Disorders: No Hx Family Autoimmune Disorders: No Medications and Allergies Allopurinol [Zyloprim] 300 mg PO DAILY 02/07/16 [History] metFORMIN [Glucophage] 500 mg PO BIDWM 08/24/16 [History] Aspirin 81 mg PO DAILY #30 tab.chew 08/26/16 [Rx] Clopidogrel [Plavix] 75 mg PO DAILY #30 tablet 08/26/16 [Rx] Metoprolol [Lopressor] 25 mg PO BID #60 tablet 08/26/16 [Rx] Nitroglycerin 0.4 mg SL Q5MIN PRN #10 tab.subl 08/26/16 [Rx] Atorvastatin [Lipitor] 80 mg PO HS 09/03/16 [History] Lisinopril [Zestril] 5 mg PO DAILY 09/03/16 [History] Allergies No Known Allergies Allergy (Verified 08/23/16 20:23) All Systems Review: A 10-system review of systems was performed and is negative for pertinent findings except as documented above in the HPI. Physical Examination Vital Signs, Last 4 Hours Temp Pulse Resp BP Pulse Ox 09/03/16 06:55 97.4 F L 87 16 108/72 97 09/03/16 05:21 99.9 F H 89 18 122/85 99 Results Lab Results 09/03/16 09/03/16 04:27 04:27 Magnesium 1.7 Troponin I 0.83 H* Consult Discharge Plan - Plan Referrals: Ab Garcia MD [Primary Care Provider] -
[2016-09-03] MEDS: Aspirin 81 MG TAB.CHEW PO SCH (09:17)
--- NOTE | 2016-09-03 13:33 | Event Note ---
Date of Encounter: 09/03/16 Time of Encounter: 13:15 Patient seen and examined. On examination, patient sleeps supine in bed. He awakened easily to voice and currently denies pain or shortness of breath. He states he is feeling better. He denies swelling in his legs worse than usual. Chest x-ray negative. Elevated troponins adynamic and slowly trending back down. Cardiology was brought on board who surmised his symptoms are not likely consistent with cardiac etiology given that he has no chest pain or shortness of breath. He did have a STEMI on 08/23/16 that required stent placement. He has 2-3+ pitting edema bilaterally which he states is his baseline. He does have some ulcers, none of which appear infected. Morbid obesity noted with BMI of 57. Patient is endorsing a normal appetite and denies any weakness at this time. He does have a urinary tract infection which could be contributing to his symptoms-ceftriaxone started, urine culture pending. No leukocytosis. Afebrile. Heart rate and blood pressure stable. No signs of sepsis or SIRS criteria noted. His diabetes is controlled with recent A1c of 5.8%. Will observe overnight and likely discharge tomorrow pending clinical outcomes.
[2016-09-03] MEDS ORDERED: Insulin LISPRO 300 UNITS/3 ML VIAL SQ SCH (21:00)
[2016-09-04] MEDS: Insulin LISPRO 300 UNITS/3 ML VIAL SQ SCH ×2 (07:53→11:28)
[2016-09-04] MEDS: Aspirin 81 MG TAB.CHEW PO SCH (08:03)
--- NOTE | 2016-09-04 11:13 | Cardiology Progress Note ---
Date of Encounter: 09/04/16 Time of Encounter: 11:06 Assessment and Plan (1) Troponin level elevated Current Visit: No Status: Acute troponin elevated , 0.77, 0.87, 0.72, 0.54 in the setting of recent STEMI . Troponin up to 6.19 during last stay. EKG showed no acute ST changes. Presents with malaise and feeling flushed for two days. Denies symptoms similar to previous HI. Denies chest pain or SOB. Found to have UTI. Work-up ordered for flu ordered but patient declined. Over-all feeling better. No indication for further cardiac testing. (2) CAD (coronary artery disease) Current Visit: Yes Status: Acute S/p recent STEMI 08/24/16. [facility] 08/24/16: successful PTCA/ELIJAH to occluded mLCx; otherwise mild, non- obstructive CAD. EF 55% per LV gram. TTE 08/24/16 showed preserved LVEF. Importance of DAPT with asa and plavix uninterrupted for minimum of one year discussed and he voiced understanding. Continue statin and bb. Patient has STEMI f/u tomorrow in [facility] with Erik Garcia CNP. Cardiac rehab will be set up at that time. Qualifiers: Coronary Disease-Associated Artery/Lesion type: [place] artery [place] vs. transplanted heart: [place] heart Associated angina: without angina Qualified Code(s): I25.10 - Atherosclerotic heart disease of [place] coronary artery without angina pectoris Discussion w patient/family: The assessment and plan as outlined above was discussed with the patient and/or family members who expressed understanding and agreement. All questions were answered. Thank you for involving us in the care of your patient. Please call with any questions. Subjective Principal diagnosis: possible viral syndrome, UTI Interval history: Patient denies chest pain. Objective Vital Signs, Last 4 Hours Temp Pulse Resp BP Pulse Ox 09/04/16 07:15 97.5 F L 67 16 125/78 95 General: Conversant, No Apparent Distress, Other (morbidley obese male. ) HEENT: Atraumatic, Normocephaly, Mucus Membranes Moist Neck: No JVD, Normal carotid pulses Cardiac: Reg Rate and Rhythm, Normal S1 and S2, No Murmur Lungs: Normal Breath Sounds, No Wheeze, Rales, Rhonchi Neuro: Alert and responsive, No focal deficits noted Abdomen: Soft, Non-Tender Skin: No rashes noted on visualized skin Musculoskeletal: No Chest Wall Tenderness Extremities: No Clubbing, No Cyanosis, Normal Pulses, Other (Trace ankle edema with discoloration. ) Results Lab Results 09/04/16 05:42 Troponin I 0.54 H* - EKG Interpretation EKG results cardiology: personally reviewed Consult Discharge Plan - Plan Referrals: Ab Garcia MD [Primary Care Provider] -
[2016-09-04 11:25] VITALS: BP 101/64
--- NOTE | 2016-09-04 13:29 | Discharge Summary ---
Date of Encounter: 09/04/16 Time of Encounter: 13:22 - Discharge Diagnosis (1) CAD (coronary artery disease) Priority: Secondary Status: Acute Qualifiers: Coronary Disease-Associated Artery/Lesion type: [place] artery [place] vs. transplanted heart: [place] heart Associated angina: without angina Qualified Code(s): I25.10 - Atherosclerotic heart disease of [place] coronary artery without angina pectoris (2) UTI (urinary tract infection) Priority: Secondary Status: Acute Qualifiers: Urinary tract infection type: site unspecified Hematuria presence: without hematuria Qualified Code(s): N39.0 - Urinary tract infection, site not specified (3) Diabetes mellitus Priority: Secondary Status: Chronic Qualifiers: Diabetes mellitus type: type 2 Diabetes mellitus complication status: with neurologic complications Diabetes mellitus complication detail: with polyneuropathy Diabetes mellitus group home insulin use: without group home use Qualified Code(s): E11.42 - Type 2 diabetes mellitus with diabetic polyneuropathy (4) Morbid obesity with BMI of 50.0-59.9, adult Priority: Secondary Status: Chronic (5) Troponin level elevated Priority: Primary Status: Acute - Discharge Medications Prescriptions: Cefuroxime Axetil [Cefuroxime] 500 mg PO BID #10 tablet Home Medications: Allopurinol [Zyloprim] 300 mg PO DAILY 02/07/16 [History] metFORMIN [Glucophage] 500 mg PO BIDWM 08/24/16 [History] Aspirin 81 mg PO DAILY #30 tab.chew 08/26/16 [Rx] Clopidogrel [Plavix] 75 mg PO DAILY #30 tablet 08/26/16 [Rx] Metoprolol [Lopressor] 25 mg PO BID #60 tablet 08/26/16 [Rx] Nitroglycerin 0.4 mg SL Q5MIN PRN #10 tab.subl 08/26/16 [Rx] Atorvastatin [Lipitor] 80 mg PO HS 09/03/16 [History] Lisinopril [Zestril] 5 mg PO DAILY 09/03/16 [History] Cefuroxime Axetil [Cefuroxime] 500 mg PO BID #10 tablet 09/04/16 [Rx] Allergies/Adverse Reactions: Allergies No Known Allergies Allergy (Verified 08/23/16 20:23) Date of admission: 09/03/16 01:12 Primary care physician: Ab Garcia MD Consults: 09/03/16 07:21 Consult to Cardiology [CONS] Routine Comment: Consulting Provider: Cardiology Lashawn Reason for Consult: Elevated troponin Call Completed: No - Patient Status Disposition: Home, Self-Care Condition: Good Functional capacity at discharge: independent ambulation Overall status at discharge: patient is back to baseline - Discharge Instructions Follow Up With: Ab Garcia MD [Primary Care Provider] - - Diet and Activity Activity: increase activity as tolerated Diet: diabetic diet, low fat, low cholesterol, low salt diet Hospital course: Mr. Sawant is a 61 year old male with past medical history signifiant fote iaed obesity, obsrte sep, CAD status post recent STEMI and heart catheterization showing occluded mid left circumflex and successful PTCA with drug-eluting stent placement on 08/23/2016. He presented to the hospital with generalized aching, weakness for fatigue and diaphoresis associated with shortness of breath. He denied fever but felt like she was developing flu symptoms. He denied chest pain. He presented to the emergency department at [facility]. His workup included troponin which was elevated at 0.77. He was given anoxic. And was transferred to our hospital for further workup and care. He was placed in observation. We trended troponin and noted that it went down to 0.5 today. His symptoms resolved. His urinalysis was positive consistent with a UTI. Urine culture remained sterile. He received treatment with ceftriaxone and will be transitioned to Ceftin. He was seen by cardiology and cleared for discharge. - Time Spent with Patient Total time spent providing and/or coordinating discharge services: - Constitutional Vitals: Temp Pulse Resp BP Pulse Ox 97.5 F L 65 16 101/64 95 09/04/16 11:24 09/04/16 11:24 09/04/16 11:24 09/04/16 11:24 09/04/16 11:24 - Respiratory Respiratory exam: Present: CTAB. Absent: accessory muscle use, rales, rhonchi, wheezes - Cardiovascular Cardiovascular exam: Present: RRR, +S1, +S2. Absent: diastolic murmur, gallop, rubs, systolic murmur - GI/Abdominal GI/Abdominal exam: Present: normal bowel sounds, soft, no peritoneal signs. Absent: distended, tenderness - Neurological Exam Neurological exam: Present: CN II-XII intact, oriented X3, no focal deficits. Absent: pronater drift, facial droop, speech deficit
--- NOTE | 2016-09-05 17:18 | Electrocardiograph Report ---
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
[2016-09-06 18:16] LABS: CK-MB (CK isoenzymes) 0 % (0-4); CK-MM (CK-isoenzymes) 82 % (96-100)
[2016-09-07 07:44] LABS: CK Total (Ck Isoenzymes) 71 U/L (20-200); CK-BB (CK isoenzymes) 0 % (0-0)
== END 2016-09-04 14:45 | disposition home or self-care (01) ==
LOC: 3BNU → SUATTDRO 01:12
PROVIDERS: ADMIT Internal Medicine; ATTEND Internal Medicine